=== PATIENT | female | born 1930 | race Caucasian/White ===

== ENCOUNTER 2019-02-16 19:58 | Inpatient (IN) | payer BC, OTHER ==
--- OUTSIDE RECORDS SUMMARY | 2019-02-16 20:00 | XMS REPORT ---
:1930 Author Organization eClinicalWorks Care Team Providers Name Role Phone Paulo Joshi Provider Role Unavailable Allergies, Adverse Reactions, Alerts Substance Reaction Event Type N.K.D.A. 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 20811916679 10 MG Oral Active TAKE 1 Sodium TABLET BY MOUTH EVERY DAY Alprazolam [facility] [id number] 0.25 MG Oral Active (Schedule IV Drug) TAKE 1 TABLET BY MOUTH AT BEDTIME NEEDED FOR SLEEP Sotalol HCl [facility] [id number] 120 MG Oral Active TAKE 1 TABLET BY MOUTH TWICE A DAY Levothyroxine [facility] 99168692034 75 MCG Oral Active TAKE 1 Sodium TABLET BY ORAL ROUTE EVERY DAY Pradaxa [facility] 78600861936 150 MG Oral Active TAKE 1 CAPSULE BY ORAL ROUTE 2 TIMES EVERY DAY Results No Known Results Summary Purpose eClinicalWorks Submission
--- OUTSIDE RECORDS SUMMARY | 2019-02-16 20:00 | XMS REPORT ---
:1930 Author Organization e[employer]Works Care Team Providers Name Role Phone Paulo Joshi Provider Role Unavailable Allergies, Adverse Reactions, Alerts Substance Reaction Event Type N.K.D.A. 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 Assessment Pain, joint, shoulder, left M25.512 Active Medications Medication Code Code Instructions Start End Status Dosage System Date Date Sotalol HCl [facility] 75443267185 120 MG Oral Active TAKE 1 TABLET BY MOUTH TWICE A DAY Alprazolam [facility] 82259609757 0.25 MG Oral Active (Schedule IV Drug) TAKE 1 TABLET BY MOUTH AT BEDTIME NEEDED FOR SLEEP Pradaxa [facility] 32027839701 150 MG Oral Active TAKE 1 CAPSULE BY ORAL ROUTE 2 TIMES EVERY DAY Levothyroxine [facility] 65022694548 75 MCG Oral Active TAKE 1 Sodium TABLET BY ORAL ROUTE EVERY DAY Montelukast [facility] 18229781267 10 MG Oral Active TAKE 1 Sodium TABLET BY MOUTH EVERY DAY Results No Known Results Summary Purpose eClinicalWorks Submission
--- OUTSIDE RECORDS SUMMARY | 2019-02-16 20:00 | XMS REPORT ---
[...] Start End Status Dosage System Date Date Pradaxa [facility] [id number] 150 MG Oral Active TAKE 1 CAPSULE BY ORAL ROUTE 2 TIMES EVERY DAY Montelukast [facility] 37382038253 10 MG Oral Active TAKE 1 Sodium TABLET BY MOUTH EVERY DAY Sotalol HCl [facility] 12929147483 120 MG Oral Active TAKE 1 TABLET BY MOUTH TWICE A DAY Levothyroxine [facility] 60367822270 75 MCG Oral Active TAKE 1 Sodium TABLET BY ORAL ROUTE EVERY DAY Alprazolam [facility] 72717508582 0.25 MG Oral Active (Schedule IV Drug) TAKE 1 TABLET BY MOUTH AT BEDTIME NEEDED FOR SLEEP Results No Known Results Summary Purpose eClinicalWorks Submission
--- OUTSIDE RECORDS SUMMARY | 2019-02-16 20:00 | XMS REPORT ---
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 Assessment Pain, joint, shoulder, right M25.511 Active Assessment Pain, joint, shoulder, left M25.512 Active Medications Medication Code Code Instructions Start End Status Dosage System Date Date Montelukast [facility] [id number] 10 MG Oral Active TAKE 1 Sodium TABLET BY MOUTH EVERY DAY Pradaxa [facility] 51088842453 150 MG Oral Active TAKE 1 CAPSULE BY ORAL ROUTE 2 TIMES EVERY DAY Alprazolam [facility] 33625686268 0.25 MG Oral Active (Schedule IV Drug) TAKE 1 TABLET BY MOUTH AT BEDTIME NEEDED FOR SLEEP Sotalol HCl [facility] 99306711744 120 MG Oral Active TAKE 1 TABLET BY MOUTH TWICE A DAY Levothyroxine [facility] 66506360542 75 MCG Oral Active TAKE 1 Sodium TABLET BY ORAL ROUTE EVERY DAY Results No Known Results Summary Purpose eClinicalWorks Submission
--- OUTSIDE RECORDS SUMMARY | 2019-02-16 20:01 | XMS REPORT ---
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 Medications Medication Code Code Instructions Start End Status Dosage System Date Date Montelukast [facility] 76241813125 10 MG Oral Active TAKE 1 Sodium TABLET BY MOUTH EVERY DAY Alprazolam [facility] 14946110120 0.25 MG Oral Active (Schedule IV Drug) TAKE 1 TABLET BY MOUTH AT BEDTIME NEEDED FOR SLEEP Levothyroxine [facility] 32819187194 75 MCG Oral Active TAKE 1 Sodium TABLET BY ORAL ROUTE EVERY DAY Pradaxa [facility] 34405305227 150 MG Oral Active TAKE 1 CAPSULE BY ORAL ROUTE 2 TIMES EVERY DAY Sotalol HCl [facility] 79523812809 120 MG Oral Active TAKE 1 TABLET BY MOUTH TWICE A DAY Results No Known Results Summary Purpose eClinicalWorks Submission
[2019-02-16 21:24] LABS: Absolute Monocytes 3.3 K/uL (0.1-1.3); Absolute Neutrophil 25.2 K/uL (1.8-8.0); Basophils % 0.4 % (0-1.3); Eosinophils % 0.6 % (0-4.4); Lymphocytes % 9.5 % (15.3-44.8); MPV 7.4 fL (7.6-11.3); Monocytes % 10.5 % (3.3-12.3); RBC Red Blood Cell Count 3.86 M/uL (3.86-4.86)
[2019-02-16] MEDS ORDERED: NA CHLORIDE 0.9% 1,000 ML ONE (21:27)
[2019-02-16] MEDS ORDERED: AZITHROMYCIN 500 MG INJ IVPB ONE (21:27)
[2019-02-16] MEDS ORDERED: ONDANSETRON 4 MG/2 ML VIAL ONE ×2 (21:27→22:34)
[2019-02-16] MEDS ORDERED: FAMOTIDINE 20 MG/2 ML VIAL IV ONE (21:27)
[2019-02-16] MEDS ORDERED: CEFTRIAXONE/SWI 1gm 1 GM/10 ML SYR ONE ×2 (21:27→22:35)
--- NOTE | 2019-02-16 21:27 | ER ---
Nurse's Notes [facility] Name: Charisse Guthrie Age: 88 yrs Sex: Female : 1930 Arrival Date: 02/16/2019 Time: 19:59 Bed 25 Private MD: Tobi Augustin C Diagnosis: Dyspnea;Hypoxemia;Weakness;Elevated white blood cell count;Pneumonia due to other specified bacteria;Nausea and vomiting;Atrial fibrillation and flutter-HX OF Presentation: 02/16 20:14 Presenting complaint: Patient states: SOB, cough, nausea, headache and neck pain ak1 started this morning. Transition of care: patient was not received from another setting of care. Onset of symptoms was February 16, 2019. Risk Assessment: Do you want to hurt yourself or someone else? Patient reports no desire to harm self or others. Care prior to arrival: None. 20:14 Method Of Arrival: Ambulatory ak1 20:14 Acuity: JOYCE 3 ak1 02/17 01:03 Initial Sepsis Screen: Does the patient meet any 2 criteria? No. Patient's initial rv sepsis screen is negative. Does the patient have a suspected source of infection? No. Patient's initial sepsis screen is negative. Triage Assessment: 02/16 20:15 General: Appears uncomfortable. ak1 02/17 01:03 Respiratory: the patient has mild shortness of breath. Respiratory: Airway is patent. rv Respiratory: Breath sounds are clear bilaterally. Respiratory: Onset: The symptoms/episode began/occurred gradually. Respiratory: Reports shortness of breath at rest. Historical: - Allergies: 02/16 20:15 No Known Allergies; ak1 - Home Meds: 22:02 Pradaxa 150 mg Oral cap 1 cap 2 times per day [Active]; Zoloft Oral [Active]; Synthroid rr5 25 mcg Oral tab 1 tab once daily [Active]; Aspirin Oral [Active]; - PMHx: 22:03 Atrial Fib; Hypertension; SVT; rr5 - Immunization history:: Adult Immunizations unknown. - Social history:: Smoking status: Patient/guardian denies using tobacco. - Ebola Screening: : No symptoms or risks identified at this time. Screenin:50 Abuse screen: Denies threats or abuse. Denies injuries from another. Nutritional rr5 screening: No deficits noted. Tuberculosis screening: No symptoms or risk factors identified. Fall Risk IV access (20 points). Total Hopper Fall Scale indicates No Risk (0-24 pts). Assessment: 20:50 General: Appears in no apparent distress. uncomfortable, Behavior is calm, cooperative, rr5 appropriate for age. 20:50 Pain: Complains of pain in throat Pain does not radiate. Pain currently is 5 out of 10 rr5 on a pain scale. Quality of pain is described as aching, Pain began gradually, Is intermittent. Neuro: Level of Consciousness is awake, alert, obeys commands, Oriented to person, place, time, situation, Appropriate for age. Cardiovascular: Capillary refill < 3 seconds Patient's skin is warm and dry. Rhythm is atrial fibrillation. Respiratory: Reports shortness of breath at rest Airway is patent Respiratory effort is even, Respiratory pattern is tachypnea. GI: Reports nausea. : No signs and/or symptoms were reported regarding the genitourinary system. EENT: Reports pain when swallowing. Derm: Skin is intact, is fragile, is thin, Skin temperature is warm. Musculoskeletal: Reports pain in ankle right. 21:50 Reassessment: dr. marsh aware for the D dimer 539. rr5 23:00 Reassessment: Patient appears in no apparent distress at this time. No changes from rr5 previously documented assessment. Patient is alert, oriented x 3, equal unlabored respirations, skin warm/dry/pink. 23:52 Reassessment: Patient appears in no apparent distress at this time. Patient is alert, rr5 oriented x 3, equal unlabored respirations, skin warm/dry/pink. no complaints made. awaiting for room assignment Patient states symptoms have improved. 02/17 00:13 Reassessment: DAUGHTER LEFT A CONTACT NUMBER - [id number]. rv 01:03 Respiratory: Breath sounds are clear bilaterally. rv Vital Signs: 02/16 20:15 BP 182 / 93; Pulse 112; Resp 20; Temp 98.8; Pulse Ox 92% on R/A; Weight 61.23 kg (R); ak1 Height 5 ft. 4 in. (162.56 cm) (R); Pain 3/10; 20:30 BP 167 / 77 RA Sitting (auto/reg); Pulse 104; Resp 22 S; Pulse Ox 99% on R/A; Pain 3/10;jp3 21:00 BP 168 / 78; Pulse 97; Resp 20; Pulse Ox 99% 2 lpm ; rr5 22:00 BP 166 / 79; Pulse 103; Resp 22; Pulse Ox 95% on 3 lpm NC; rr5 23:00 BP 155 / 70; Pulse 104; Resp 20; Pulse Ox 99% ; rr5 23:00 Pulse Ox 99% on 3 lpm NC; rr5 02/17 00:00 BP 136 / 67 RA; Pulse 95; Resp 18 S; Pulse Ox 98% on 3 lpm NC; rv 02/16 20:15 Body Mass Index 23.17 (61.23 kg, 162.56 cm) ak1 ED Course: 02/16 19:59 Patient arrived in ED. am2 20:00 Tobi Augustin MD is Private Physician. am2 20:14 Triage completed. ak1 20:15 Arm band placed on Patient placed in an exam room, on a stretcher, Patient notified of ak1 wait time. 20:20 Oxygen administration via nasal cannula \T\ 2L/min Response to oxygen therapy: symptoms jp3 improved. 20:23 EKG done, by ED staff, reviewed by Francisco Marsh MD. jp3 20:29 Francisco Marsh MD is Attending Physician. kristin 20:30 Warm blanket given. Pillow given. jp3 20:30 Inserted saline lock: 20 gauge in left forearm, using aseptic technique. Blood rr5 collected. 20:38 Placed in gown. Bed in low position. Call light in reach. Side rails up X 1. Side rails jp3 up X2. sheriff on. Pulse ox on. NIBP on. 20:52 Kareem Adhikari RN is Primary Nurse. rr5 21:25 Tobi Augustin MD is Hospitalizing Provider. kristin 21:27 Notified ED physician of a critical lab result(s). WBCs 31.9. Dr Marsh notified. bb 21:31 XRAY Chest (1 view) In Process Unspecified. EDMS 22:24 CT completed. Patient tolerated procedure well. Patient moved to CT. Patient moved back nc from CT. 02/17 01:00 No provider procedures requiring assistance completed. Patient admitted, IV remains in rv place. Administered Medications: 02/16 20:55 Drug: NS 0.9% 500 ml Route: IV; Rate: bolus; Site: left forearm; rr5 21:35 Follow up: Response: No adverse reaction; IV Status: Completed infusion; IV Intake: rr5 500ml 21:00 Drug: Pepcid 20 mg Route: IVP; Site: left forearm; rr5 23:55 Follow up: Response: No adverse reaction rr5 21:01 Drug: Rocephin 1 grams - ((cefTRIAXone) 1 grams, NS 0.9% 50 ml) Route: IVPB; Infused rr5 Over: 30 mins; Site: left forearm; 21:30 Follow up: Response: No adverse reaction; IV Status: Completed infusion; IV Intake: [id number] 21:05 Drug: Zofran 2 mg Route: IVP; Site: left forearm; rr5 23:56 Follow up: Response: No adverse reaction rr5 21:40 Dru mg of (Zithromax 500 mg, NS 0.9% 250 ml) Route: IVPB; Infused Over: 1 hrs; rr5 Site: left forearm; 22:40 Follow up: Response: No adverse reaction; IV Status: Completed infusion; IV Intake: rr5 250ml 22:00 Drug: NS 0.9% 1000 ml Route: IV; Rate: 125 ml/hr; Site: left forearm; rr5 04 01:09 Follow up: Response: No adverse reaction; IV Status: Infusion continued upon admission; rr5 IV Intake: 375ml 02/16 22:00 Drug: Tamiflu 75 mg Route: PO; rr5 23:54 Follow up: Response: No adverse reaction rr5 22:40 Drug: SOLU-Medrol 125 mg Route: IVP; Site: left forearm; rr5 23:54 Follow up: Response: No adverse reaction rr5 22:50 Drug: Rocephin - (cefTRIAXone) 1 grams Route: IVPB; Infused Over: 30 mins; Site: left rr5 forearm; 23:20 Follow up: Response: No adverse reaction; IV Status: Completed infusion; IV Intake: [id number] 22:54 Drug: Zofran 2 mg Route: IVP; Site: left forearm; rr5 23:54 Follow up: Response: No adverse reaction rr5 22:55 Drug: Xopenex 1.25 mg Route: Inhalation; rr5 23:55 Follow up: Response: No adverse reaction rr5 22:55 Drug: AtroVENT Aerosol 0.5 mg Route: Inhalation; rr5 23:55 Follow up: Response: No adverse reaction rr5 Intake: 21:30 IV: 50ml; Total: 50ml. rr5 21:35 IV: 500ml; Total: 550ml. rr5 22:40 IV: 250ml; Total: 800ml. rr5 23:20 IV: 50ml; Total: 850ml. rr5 02/17 01:09 IV: 375ml; Total: 1225ml. rr5 Output: 02/16 22:40 Stool: 1 (Formed Stool) ; Total: 0ml. rr5 Outcome: 21:26 Decision to Hospitalize by Provider. kristin 02/17 01:04 Admitted to ER Hold. Please see [facility] for further documentation. rv Condition: stable Instructed on the need for admit, Demonstrated understanding of instructions. 07:57 Patient left the ED. iw Signatures: Dispatcher [employer] EDFrancisco Jaramillo MD MD cha Ballard, Brenda, RN RN Piedad Loo RN RN iw Renata Jiang RN RN ak1 Jamie Monroy Amanda am2 Vicente, Ronaldo, RN RN rv Jose Farrar jp3 Kareem Adhikari, RN RN rr5 Corrections: (The following items were deleted from the chart) 02/16 20:42 20:39 Oxygen administration via nasal cannula \T\ 2L/min Response to oxygen therapy: jp3 symptoms improved. jp3
--- NOTE | 2019-02-16 21:27 | EDPHYS ---
Physician Documentation [facility] Name: Charisse Guthrie Age: 88 yrs Sex: Female : 1930 Arrival Date: 02/16/2019 Time: 19:59 Bed 25 Private MD: Tobi Augustin C ED Physician Francisco Marsh HPI: 02/16 20:47 This 88 yrs old Female presents to ER via Ambulatory with complaints of kristin Shortness Of Breath, Nausea, Sore Throat. 20:47 The patient has shortness of breath at rest, with light activity. Onset: The kristin symptoms/episode began/occurred 2 day(s) ago. Duration: The symptoms are continuous, and are unchanged since they started. The patient's shortness of breath has no apparent modifying factors. Associated signs and symptoms: The patient has no apparent associated signs or symptoms. Severity of symptoms: At their worst the symptoms were mild in the emergency department the symptoms are unchanged. The patient has not experienced similar symptoms in the past, It is unknown whether or not the patient has had similar symptoms in the past. Historical: - Allergies: 20:15 No Known Allergies; ak1 - Home Meds: 22:02 Pradaxa 150 mg Oral cap 1 cap 2 times per day [Active]; Zoloft Oral [Active]; Synthroid rr5 25 mcg Oral tab 1 tab once daily [Active]; Aspirin Oral [Active]; - PMHx: 22:03 Atrial Fib; Hypertension; SVT; rr5 - Immunization history:: Adult Immunizations unknown. - Social history:: Smoking status: Patient/guardian denies using tobacco. - Ebola Screening: : No symptoms or risks identified at this time. ROS: 20:47 Constitutional: Negative for fever, chills, and weight loss, Eyes: Negative for injury, kristin pain, redness, and discharge, Neck: Negative for injury, pain, and swelling, Cardiovascular: Negative for chest pain, palpitations, and edema, Respiratory: Negative for shortness of breath, cough, wheezing, and pleuritic chest pain, Abdomen/GI: Negative for abdominal pain, nausea, vomiting, diarrhea, and constipation, Back: Negative for injury and pain, : Negative for injury, bleeding, discharge, and swelling, MS/Extremity: Negative for injury and deformity, Skin: Negative for injury, rash, and discoloration, Neuro: Negative for headache, weakness, numbness, tingling, and seizure, Psych: Negative for depression, anxiety, suicide ideation, homicidal ideation, and hallucinations, Allergy/Immunology: Negative for hives, rash, and allergies, Endocrine: Negative for neck swelling, polydipsia, polyuria, polyphagia, and marked weight changes, Hematologic/Lymphatic: Negative for swollen nodes, abnormal bleeding, and unusual bruising. 20:47 ENT: Positive for difficulty swallowing, hoarseness, sinus congestion, sore throat. 20:47 Cardiovascular: Negative for chest pain. 20:47 MS/extremity: Negative for acute changes. Exam: 20:48 Constitutional: This is a well developed, well nourished patient who is awake, alert, kristin and in no acute distress. Head/Face: Normocephalic, atraumatic. Eyes: Pupils equal round and reactive to light, extra-ocular motions intact. Lids and lashes normal. Conjunctiva and sclera are non-icteric and not injected. Cornea within normal limits. Periorbital areas with no swelling, redness, or edema. ENT: Nares patent. No nasal discharge, no septal abnormalities noted. Tympanic membranes are normal and external auditory canals are clear. Oropharynx with no redness, swelling, or masses, exudates, or evidence of obstruction, uvula midline. Mucous membranes moist. Neck: Trachea midline, no thyromegaly or masses palpated, and no cervical lymphadenopathy. Supple, full range of motion without nuchal rigidity, or vertebral point tenderness. No Meningismus. Chest/axilla: Normal chest wall appearance and motion. Nontender with no deformity. No lesions are appreciated. Cardiovascular: Regular rate and rhythm with a normal S1 and S2. No gallops, murmurs, or rubs. Normal PMI, no JVD. No pulse deficits. Respiratory: Lungs have equal breath sounds bilaterally, clear to auscultation and percussion. No rales, rhonchi or wheezes noted. No increased work of breathing, no retractions or nasal flaring. Abdomen/GI: Soft, non-tender, with normal bowel sounds. No distension or tympany. No guarding or rebound. No evidence of tenderness throughout. Back: No spinal tenderness. No costovertebral tenderness. Full range of motion. Skin: Warm, dry with normal turgor. Normal color with no rashes, no lesions, and no evidence of cellulitis. MS/ Extremity: Pulses equal, no cyanosis. Neurovascular intact. Full, normal range of motion. Neuro: Awake and alert, GCS 15, oriented to person, place, time, and situation. Cranial nerves II-XII grossly intact. Motor strength 5/5 in all extremities. Sensory grossly intact. Cerebellar exam normal. Normal gait. Psych: Awake, alert, with orientation to person, place and time. Behavior, mood, and affect are within normal limits. 20:48 Neck: ROM/movement: is normal, no acute changes, Meningeal signs: are not present, Kernig's sign is negative, Brudzinski's sign is negative. 20:48 Musculoskeletal/extremity: DVT Exam: No signs of deep vein thrombosis. no pain, no swelling, no tenderness, negative Homans' sign noted on exam, no appreciated bluish discoloration, no erythema, no increased warmth. Vital Signs: 20:15 BP 182 / 93; Pulse 112; Resp 20; Temp 98.8; Pulse Ox 92% on R/A; Weight 61.23 kg (R); ak1 Height 5 ft. 4 in. (162.56 cm) (R); Pain 3/10; 20:30 BP 167 / 77 RA Sitting (auto/reg); Pulse 104; Resp 22 S; Pulse Ox 99% on R/A; Pain 3/10;jp3 21:00 BP 168 / 78; Pulse 97; Resp 20; Pulse Ox 99% 2 lpm ; rr5 22:00 BP 166 / 79; Pulse 103; Resp 22; Pulse Ox 95% on 3 lpm NC; rr5 23:00 BP 155 / 70; Pulse 104; Resp 20; Pulse Ox 99% ; rr5 23:00 Pulse Ox 99% on 3 lpm NC; rr5 02/17 00:00 BP 136 / 67 RA; Pulse 95; Resp 18 S; Pulse Ox 98% on 3 lpm NC; rv 02/16 20:15 Body Mass Index 23.17 (61.23 kg, 162.56 cm) ak1 MDM: 02/16 20:29 Patient medically screened. [facility] 20:49 Data reviewed: vital signs, nurses notes, lab test result(s), EKG, radiologic studies, kristin plain films. 02/16 20:46 Order name: Basic Metabolic Panel; Complete Time: 21:52 [facility] 02/16 20:46 Order name: CBC with Diff [facility] 02/16 20:46 Order name: LFT's; Complete Time: 21:52 [facility] 02/16 20:46 Order name: Magnesium; Complete Time: 21:52 [facility] 02/16 20:46 Order name: NT PRO-BNP; Complete Time: 21:52 [facility] 02/16 20:46 Order name: PT-INR [facility] 02/16 20:46 Order name: Troponin (emerg Dept Use Only); Complete Time: 21:52 [facility] 02/16 20:46 Order name: Blood Culture Adult (2) [facility] 02/16 20:46 Order name: Strep; Complete Time: 21:52 [facility] 02/16 20:46 Order name: Lipase; Complete Time: 21:52 [facility] 02/16 20:46 Order name: Urine Culture [facility] 02/16 20:46 Order name: D-Dimer [facility] 02/16 20:46 Order name: Influenza Screen (a \T\ B); Complete Time: 21:52 [facility] 02/16 21:28 Order name: Manual Differential [facility] 02/16 20:46 Order name: XRAY Chest (1 view) [facility] 02/16 21:31 Order name: Procalcitonin [facility] 02/16 21:31 Order name: Lactate [facility] 02/16 21:45 Order name: Throat Culture [facility] 02/16 21:49 Order name: Basic Metabolic Panel [facility] 02/16 21:50 Order name: Basic Metabolic Panel [facility] 02/16 21:50 Order name: CBC with Automated Diff [facility] 02/16 21:50 Order name: CBC with Automated Diff [facility] 02/16 21:50 Order name: NT PRO-BNP [facility] 02/16 21:50 Order name: NT PRO-BNP [facility] 02/16 21:50 Order name: Troponin I [facility] 02/16 21:50 Order name: Troponin I [facility] 02/16 21:50 Order name: Troponin I [facility] 02/16 21:50 Order name: Chest Single View [facility] 02/16 21:50 Order name: Chest Single View [facility] 02/16 21:59 Order name: Urine Dipstick--Ancillary (enter results) ar5 02/16 20:46 Order name: EKG; Complete Time: 20:47 [facility] 02/16 20:46 Order name: Cardiac monitoring; Complete Time: 21:11 [facility] 02/16 20:46 Order name: EKG - Nurse/Tech; Complete Time: 21:11 [facility] 02/16 20:46 Order name: IV Saline Lock; Complete Time: 21:12 [facility] 02/16 20:46 Order name: Labs collected and sent; Complete Time: 21:12 [facility] 02/16 20:46 Order name: O2 Per Protocol; Complete Time: 21:12 [facility] 02/16 20:46 Order name: O2 Sat Monitoring; Complete Time: 21:12 [facility] 02/16 20:46 Order name: Urine Dipstick-Ancillary (obtain specimen); Complete Time: 22:57 [facility] 02/16 21:50 Order name: Regular [facility] 02/16 21:50 Order name: EKG Electrocardiogram [facility] 02/16 21:50 Order name: EKG Electrocardiogram [facility] 02/16 21:56 Order name: CT Chest For PE Angio kristin Administered Medications: 20:55 Drug: NS 0.9% 500 ml Route: IV; Rate: bolus; Site: left forearm; rr5 21:35 Follow up: Response: No adverse reaction; IV Status: Completed infusion; IV Intake: rr5 500ml 21:00 Drug: Pepcid 20 mg Route: IVP; Site: left forearm; rr5 23:55 Follow up: Response: No adverse reaction rr5 21:01 Drug: Rocephin 1 grams - ((cefTRIAXone) 1 grams, NS 0.9% 50 ml) Route: IVPB; Infused rr5 Over: 30 mins; Site: left forearm; 21:30 Follow up: Response: No adverse reaction; IV Status: Completed infusion; IV Intake: 30gybm2 21:05 Drug: Zofran 2 mg Route: IVP; Site: left forearm; rr5 23:56 Follow up: Response: No adverse reaction rr5 21:40 Dru mg of (Zithromax 500 mg, NS 0.9% 250 ml) Route: IVPB; Infused Over: 1 hrs; rr5 Site: left forearm; 22:40 Follow up: Response: No adverse reaction; IV Status: Completed infusion; IV Intake: rr5 250ml 22:00 Drug: NS 0.9% 1000 ml Route: IV; Rate: 125 ml/hr; Site: left forearm; rr5 02/17 01:09 Follow up: Response: No adverse reaction; IV Status: Infusion continued upon admission; rr5 IV Intake: 375ml 02/16 22:00 Drug: Tamiflu 75 mg Route: PO; rr5 23:54 Follow up: Response: No adverse reaction rr5 22:40 Drug: SOLU-Medrol 125 mg Route: IVP; Site: left forearm; rr5 23:54 Follow up: Response: No adverse reaction rr5 22:50 Drug: Rocephin - (cefTRIAXone) 1 grams Route: IVPB; Infused Over: 30 mins; Site: left rr5 forearm; 23:20 Follow up: Response: No adverse reaction; IV Status: Completed infusion; IV Intake: [id number] 22:54 Drug: Zofran 2 mg Route: IVP; Site: left forearm; rr5 23:54 Follow up: Response: No adverse reaction rr5 22:55 Drug: Xopenex 1.25 mg Route: Inhalation; rr5 23:55 Follow up: Response: No adverse reaction rr5 22:55 Drug: AtroVENT Aerosol 0.5 mg Route: Inhalation; rr5 23:55 Follow up: Response: No adverse reaction rr5 Disposition: 02/16/19 21:26 Hospitalization ordered by Tobi Augustin for Inpatient Admission. Preliminary diagnosis are Dyspnea, Hypoxemia, Weakness, Elevated white blood cell count, Pneumonia due to other specified bacteria, Nausea and vomiting, Atrial fibrillation and flutter - HX OF. - Bed requested for Telemetry/MedSurg (Inpatient). - Status is Inpatient Admission. iw - Condition is Fair. - Problem is new. - Symptoms have improved. UTI on Admission? No Signatures: Dispatcher [employer] [facility] Angeles Araya FNP-C FNP-Nicole Zepeda RN RN kl Anderson, Corey, MD MD cha Ballard, Brenda, RN RN bb Williams, Irene, RN RN iw Krenek, Amber, RN RN ak1 Kareem Adhikari RN RN rr5 Corrections: (The following items were deleted from the chart) 21:31 21:26 Hospitalization Ordered by Tobi Augustin MD for Inpatient Admission. Preliminary kristin diagnosis is Dyspnea; Hypoxemia; Weakness. Bed requested for Telemetry/MedSurg (Inpatient). Status is Inpatient Admission. Condition is Fair. Problem is new. Symptoms have improved. UTI on Admission? No. kristin 21:43 21:31 02/16/2019 21:26 Hospitalization Ordered by A Demetria MONTEZ for Inpatient Admission. kristin Preliminary diagnosis is Dyspnea; Hypoxemia; Weakness; Elevated white blood cell count. Bed requested for Telemetry/MedSurg (Inpatient). Status is Inpatient Admission. Condition is Fair. Problem is new. Symptoms have improved. UTI on Admission? No. kristin 23:58 21:43 02/16/2019 21:26 Hospitalization Ordered by A Demetria MONTEZ for Inpatient Admission. bb Preliminary diagnosis is Dyspnea; Hypoxemia; Weakness; Elevated white blood cell count; Pneumonia due to other specified bacteria; Nausea and vomiting; Atrial fibrillation and flutter - HX OF. Bed requested for Telemetry/MedSurg (Inpatient). Status is Inpatient Admission. Condition is Fair. Problem is new. Symptoms have improved. UTI on Admission? No. kristin 02/17 06:30 02/16 23:58 02/16/2019 21:26 Hospitalization Ordered by A Demetria MONTEZ for Inpatient kl Admission. Preliminary diagnosis is Dyspnea; Hypoxemia; Weakness; Elevated white blood cell count; Pneumonia due to other specified bacteria; Nausea and vomiting; Atrial fibrillation and flutter - HX OF. Bed requested for [facility] ER HOLD. Status is Inpatient Admission. Condition is Fair. Problem is new. Symptoms have improved. UTI on Admission? No. bb 02/17 06:31 06:30 02/16/2019 21:26 Hospitalization Ordered by A Demetria MONTEZ for Inpatient Admission. kl Preliminary diagnosis is Dyspnea; Hypoxemia; Weakness; Elevated white blood cell count; Pneumonia due to other specified bacteria; Nausea and vomiting; Atrial fibrillation and flutter - HX OF. Bed requested for Telemetry/MedSurg (Inpatient). Status is Inpatient Admission. Condition is Fair. Problem is new. Symptoms have improved. UTI on Admission? No. kl 07:57 06:31 02/16/2019 21:26 Hospitalization Ordered by A Demetria MONTEZ for Inpatient Admission. iw Preliminary diagnosis is Dyspnea; Hypoxemia; Weakness; Elevated white blood cell count; Pneumonia due to other specified bacteria; Nausea and vomiting; Atrial fibrillation and flutter - HX OF. Bed requested for Telemetry/MedSurg (Inpatient). Status is Inpatient Admission. Condition is Fair. Problem is new. Symptoms have improved. UTI on Admission? No. kl
[2019-02-16] MEDS ORDERED: NA CHLORIDE 0.9% 250 ML ONE (21:28)
[2019-02-16 21:34] LABS: Protime INR 0.96
[2019-02-16 21:46] LABS: ALT/SGPT 42 U/L (12-78); AST/SGOT 23 U/L (15-37); Albumin 3.7 g/dL (3.4-5.0); Alkaline Phosphatase 83 U/L (45-117); BUN Blood Urea Nitrogen 25 mg/dL (7-18); Bicarbonate 28 mmol/L (21-32); Bilirubin Direct 0.2 mg/dL (0-0.2); Bilirubin Total 0.6 mg/dL (0.2-1.0); Glucose Level 107 mg/dL (74-106); Lipase 195 U/L (73-393); NT PRO-BNP 1238 pg/mL (<450); Potassium 3.9 mmol/L (3.5-5.1); Protein, Total 7.5 g/dL (6.4-8.2); Sodium Level 135 mmol/L (136-145); Troponin (Emerg Dept Use Only) < 0.02 ng/mL (0.0-0.045)
[2019-02-16] MEDS ORDERED: ALBUTEROL 2.5 MG/3 ML NEB SOL NEB PRN (21:46)
[2019-02-16] MEDS ORDERED: ONDANSETRON 4 MG/2 ML VIAL IV PRN (21:46)
[2019-02-16] MEDS ORDERED: IPRATROPIUM BROM 0.5MG/2.5ML NEB PRN (21:46)
[2019-02-16] MEDS ORDERED: NA CHLORIDE 0.9% 1,000 ML IV SCH (22:00)
[2019-02-16 22:03] LABS: Urine Blood TRACE (NEG); Urine Glucose NEGATIVE (NEG); Urine Protein TRACE (NEG)
[2019-02-16] MEDS ORDERED: METHYLPREDNISOLONE 125 MG INJ ONE (22:34)
[2019-02-16] MEDS ORDERED: LEVALBUTEROL 1.25 MG/3 ML NEB ONE (22:34)
[2019-02-16] MEDS ORDERED: OSELTAMIVIR 75 MG CAP ONE (22:34)
[2019-02-16] MEDS ORDERED: IPRATROPIUM BROM 0.5MG/2.5ML ONE (22:34)
[2019-02-16 22:50] LABS: Blood Morphology Comment NOT SEEN (NOT SEEN); Platelet Estimate ADEQ
[2019-02-17] MEDS ORDERED: NA CHLORIDE 0.9% 1,000 ML ONE (02:01)
[2019-02-17 05:54] LABS: Absolute Lymphocytes (CBC) 1.2 K/uL (0.7-4.9); Absolute Monocytes 0.6 K/uL (0.1-1.3); Absolute Neutrophil 25.1 K/uL (1.8-8.0); Basophils % 0.3 % (0-1.3); Hematocrit 35.6 % (36.0-45.0); Lymphocytes % 4.3 % (15.3-44.8); Monocytes % 2.1 % (3.3-12.3); RBC Red Blood Cell Count 3.61 M/uL (3.86-4.86)
[2019-02-17 06:20] LABS: Potassium 4.3 mmol/L (3.5-5.1)
[2019-02-17] MEDS: IPRATROPIUM BROM 0.5MG/2.5ML NEB SCH ×3 (07:45→20:00)
[2019-02-17] MEDS: ALBUTEROL 2.5 MG/3 ML NEB SOL NEB SCH ×3 (07:45→20:00)
[2019-02-17] MEDS ORDERED: ALBUTEROL 2.5 MG/3 ML NEB SOL ONE (07:55)
[2019-02-17] MEDS ORDERED: IPRATROPIUM BROM 0.5MG/2.5ML ONE (07:55)
--- NOTE | 2019-02-17 08:01 | RAD REPORT ---
EXAM DESCRIPTION: RAD - Chest Single View - 02/16/2019 9:38 pm CLINICAL HISTORY: Cough;Congestion Chest pain. COMPARISON: Chest Single View dated 04/13/2017; Chest Pa And Lat (2 Views) dated 06/12/2016; CHEST SINGL E VIEW dated 07/19/2010; CHEST SINGLE VIEW dated 07/18/2010; Chest For Pe Angio dated 02/16/2019 FINDINGS: Portable technique limits examination quality. Mild linear opacities are present in both lung bases likely areas atelectasis. The heart is normal in size. Tortuous thoracic aorta.No fracture is evident.
--- NOTE | 2019-02-17 08:11 | RAD REPORT ---
EXAM DESCRIPTION: RAD - Chest Single View - 02/17/2019 6:59 am CLINICAL HISTORY: Chest Pain Chest pain. COMPARISON: Chest Single View dated 02/16/2019; Chest Single View dated 04/13/2017; Chest Pa And Lat (2 Views) dated 06/12/2016; CHEST SINGLE VIEW dated 07/19/2010; Chest For Pe Angio dated 02/16/2019 FINDINGS: Portable technique limits examination quality. Trace pleural fluid is present bilaterally with minimal atelectasis in both lung bases. The heart is upper limit normal in size. No displaced fractures. IMPRESSION: Little overall change in the appearance of the chest since recent comparative study.
[2019-02-17] MEDS ORDERED: CEFTRIAXONE 1 GM/NS 50 ML 1 GM/50 ML BAG IV SCH (09:00)
[2019-02-17] MEDS ORDERED: AZITHROMYCIN IV 500 MG in NA CHLORIDE 0.9% 250 ML IVPB SCH (09:00)
[2019-02-17] MEDS: MONTELUKAST 10 MG TAB PO SCH (10:03)
[2019-02-17] MEDS: NA CHLORIDE 0.9% 1,000 ML IV SCH (10:03)
[2019-02-17] MEDS: LEVOTHYROXINE SOD 0.05 MG TABLET PO SCH (10:03)
[2019-02-17] MEDS: DABIGATRAN 150 MG CAP PO SCH ×2 (10:03→21:04)
[2019-02-17] MEDS: FLUOXETINE 20 MG CAP PO SCH (10:04)
[2019-02-17] MEDS: SOTALOL HCL 80 MG TAB PO SCH ×2 (10:04→21:03)
[2019-02-17] MEDS: FAMOTIDINE 20 MG/2 ML VIAL IV SCH ×2 (10:05→21:05)
[2019-02-17] MEDS: CEFTRIAXONE/SWI 1gm 1 GM/10 ML SYR IV SCH ×2 (10:05→21:02)
[2019-02-17] MEDS: RIVASTIGMINE 4.6 MG/24 HR PATCH TD SCH (10:06)
[2019-02-17 10:45] VITALS: BMI 21.6
--- NOTE | 2019-02-17 11:24 | RAD REPORT ---
EXAM DESCRIPTION: Chest For Pe Angio CLINICAL HISTORY: 88 years Female, Congestion;Cough COMPARISON: None. TECHNIQUE: 3 mm axial images of the thorax were obtained with IV contrast. Coronal and sagittal refo rmatted images were obtained. Right lobe likely a left oblique reformatted images were obtained. INTRAVENOUS CONTRAST: Not documented. Please refer to medical record. FINDINGS: LUNG RDZ: There is small multifocal pulmonary infiltrates in the upper lobes bilaterally. MEDIASTINAL STRUCTURES: There is no evidence of aortic aneurysm or aortic dissection. There is moderately severe atherosclerotic disease about the thoracic aorta. There is no adenopathy. There is no pericardial effusion. PULMONARY ARTERIES: No evidence pulmonary embolus. PLEURAL SPACE: Normal. AXILLAE: No adenopathy. UPPER ABDOMEN: No acute findings. BONY STRUCTURES: No suspicious lesions. There is no adenopathy. IMPRESSION: 1. Small multifocal pulmonary infiltrates in the upper lobes bilaterally. 2. No evidence of pulmonary emboli. Electronically signed by: Juni Coats MD 02/16/2019 10:43 PM CDT Due to temporary technical issues with the PACS/Fluency reporting system, reports are being signed by the in house radiologist as a courtesy to ensure prompt reporting. The interpreting radiologist is f ully responsible for the content of the report.
--- NOTE | 2019-02-17 11:43 | EKG ---
Test Date: 2019-02-17 Test Time: 09:03:17 Investment Trader: MARGUERITE MEASUREMENT RESULTS: Intervals: Rate: 85 DE: 148 QRSD: 82 QT: 388 QTc: 461 [place]: P: 53 DE: 148 QRS: 52 T: 60 INTERPRETIVE STATEMENTS: Normal sinus rhythm Normal ECG Compared to ECG 02/17/2019 05:00:31 No significant changes Electronically Signed On 02-17-19 09:57:28 CDT by Jose Mason
--- NOTE | 2019-02-17 11:44 | EKG ---
Test Date: 2019-02-17 Test Time: 05:00:31 Film Masker: [email or web address] MEASUREMENT RESULTS: Intervals: Rate: 81 WV: 164 QRSD: 84 QT: 398 QTc: 462 [place]: P: 55 WV: 164 QRS: 83 T: 78 INTERPRETIVE STATEMENTS: Normal sinus rhythm Normal ECG Compared to ECG 02/16/2019 20:27:05 No significant changes Electronically Signed On 02-17-19 10:01:25 CDT by Jose Mason
--- NOTE | 2019-02-17 11:45 | EKG ---
Test Date: 2019-02-16 Test Time: 20:27:05 Ada Accommodation Consultant: VENTURA MEASUREMENT RESULTS: Intervals: Rate: 97 FL: 164 QRSD: 80 QT: 340 QTc: 431 [place]: P: 75 FL: 164 QRS: 49 T: 64 INTERPRETIVE STATEMENTS: Normal sinus rhythm Normal ECG Compared to ECG 04/13/2017 18:48:47 No significant changes Electronically Signed On 02-17-19 10:03:08 CDT by Jose Mason
[2019-02-17] MEDS: MAGNESIUM CHLORIDE 64 MG TAB PO SCH (11:55)
[2019-02-17] MEDS: AZITHROMYCIN IV 500 MG in NA CHLORIDE 0.9% 250 ML IVPB SCH (21:05)
[2019-02-17] MEDS: ALPRAZOLAM 0.25 MG TABLET PO PRN (21:27)
[2019-02-18] MEDS: ALBUTEROL 2.5 MG/3 ML NEB SOL NEB SCH ×4 (02:00→20:00)
[2019-02-18] MEDS: IPRATROPIUM BROM 0.5MG/2.5ML NEB SCH ×4 (02:00→20:00)
--- NOTE | 2019-02-18 02:58 | HP ---
Date of Admission: 02/17/2019 Chief Complaint: Cough, shortness of breath, and feeling bad. History Of Present Illness: This is an 88-year-old female patient, who came into emergency room yesterday with complaints of cough, chest congestion, shortness of breath, and feeling weak and really bad. After she was evaluated in the emergency room, she was admitted to the hospital with pneumonia. This morning when I saw her, she was in the emergency room. Allergies: NO KNOWN ALLERGIES. Medications: List reviewed. Review of Systems: Respiratory: As mentioned above. Constitutional: As mentioned above. All other systems reviewed and negative. Past Medical History: Significant for osteoarthritis at multiple sites, hypertension, hyperlipidemia, atrial fibrillation, hypothyroidism, allergic rhinitis, hypomagnesemia, depression, COPD. Past Surgical History: Cervical fusion, cholecystectomy, tonsillectomy, hysterectomy, fracture of right lower leg and surgery for that. Family History: Father had ALS. Mother had breast cancer. Social History: Prior history of smoking, not at present time. Use of alcohol negative. Physical Examination: Vital Signs: When she first came into emergency room, temperature 98.8, pulse 99, respiratory rate 18, blood pressure 129/71, oxygen saturation 94%. Height 5 feet and 4 inches, weight 134 pounds. General: Awake, alert, oriented, not in distress. HEENT: Head atraumatic, normocephalic. Conjunctivae nonerythematous. Sclerae white. Mouth, no thrush or edema noted. Ears/Nose, no mass, lesion, discharge noted. Neck: Supple. No JVD, lymph nodes, bruit, thyromegaly noted. Lungs: Some rales in right lower lung region and diminished air entry in left upper lung region. The patient is not using any accessory muscles of respiration. Heart: Normal heart sounds, no murmur or gallop. Abdomen: Soft, bowel sounds normal. No guarding, rigidity, tenderness, mass, hepatosplenomegaly, distention, or bruit noted. Extremities: No leg edema. No calf tenderness. Skin: No rash, ulcer, cellulitis. Lymphatics: No lymph node enlargement in neck, supraclavicular, infraclavicular region. Neuro: No focal neurological deficit. Chest: Unremarkable. External Genitalia: Deferred. Rectal: Deferred. Laboratory Data: Yesterday, white count 31.9, hemoglobin 12.7, platelets 422. This morning, white count 26.8, hemoglobin 11.9, platelets 369. D-dimer 539. INR normal. Yesterday, sodium 135, potassium 3.9, chloride 99, bicarb 28, BUN 25, creatinine 0.84, glucose 107. Lactic acid 1.2. Procalcitonin less than 0.05. Liver function tests unremarkable. Troponin less than 0.02. This morning, sodium 137, potassium 4.3, chloride 103, bicarb 27, BUN 17, creatinine 0.69, glucose 159. Urinalysis negative. Influenza A and B negative. Streptococcal screen negative. CAT scan of the chest per PE protocol shows no evidence of pulmonary emboli and bilateral multifocal pneumonia. Impression: 1. Pneumonia. 2. Paroxysmal atrial fibrillation. 3. Chronic anticoagulation therapy. 4. Hypertension. 5. COPD. 6. Hyperlipidemia. 7. Hypothyroidism. 8. Allergic rhinitis. 9. Hypomagnesemia. 10. Depression. 11. Osteoarthritis, multiple sites. Plan: Admit the patient to hospital for further evaluation and management of this problem. The patient is appropriate for inpatient and is expected to spend 2 midnights in hospital. Home medications will be continued per order including her chronic anticoagulation therapy, Pradaxa. We will give oxygen nebulizer treatment, antibiotics per order, follow up on culture results. Consult Physical Therapy to help ambulate the patient. I will see her tomorrow for followup. Plan of treatment discussed with her. REDDY/DARVIN Voice ID: [id number] MTDD
[2019-02-18] MEDS: NA CHLORIDE 0.9% 1,000 ML IV SCH (03:30)
[2019-02-18] MEDS: GUAIFENESIN/DM 5 ML UCUP PO PRN ×2 (03:35→18:37)
[2019-02-18 06:15] LABS: Absolute Lymphocytes (CBC) 1.5 K/uL (0.7-4.9); Absolute Monocytes 1.8 K/uL (0.1-1.3); Basophils % 0.1 % (0-1.3); Eosinophils % 0.1 % (0-4.4); Hematocrit 29.4 % (36.0-45.0); Lymphocytes % 8.5 % (15.3-44.8); MPV 7.5 fL (7.6-11.3); Monocytes % 10.2 % (3.3-12.3); RBC Red Blood Cell Count 2.95 M/uL (3.86-4.86)
[2019-02-18 06:19] LABS: Magnesium 2.1 mg/dL (1.8-2.4); Potassium 3.7 mmol/L (3.5-5.1)
[2019-02-18] MEDS: LEVOTHYROXINE SOD 0.05 MG TABLET PO SCH (06:24)
[2019-02-18] MEDS: RIVASTIGMINE 4.6 MG/24 HR PATCH TD SCH (09:17)
[2019-02-18] MEDS: DULERA 100/5 (MOMETASONE/FORMOTEROL) INHALER IH SCH ×2 (09:18→20:18)
[2019-02-18] MEDS: FLUOXETINE 20 MG CAP PO SCH (09:19)
[2019-02-18] MEDS: CEFTRIAXONE/SWI 1gm 1 GM/10 ML SYR IV SCH ×2 (09:19→20:19)
[2019-02-18] MEDS: MONTELUKAST 10 MG TAB PO SCH (09:19)
[2019-02-18] MEDS: DABIGATRAN 150 MG CAP PO SCH ×2 (09:19→20:18)
[2019-02-18] MEDS: FAMOTIDINE 20 MG/2 ML VIAL IV SCH ×2 (09:19→20:19)
[2019-02-18] MEDS: SOTALOL HCL 80 MG TAB PO SCH ×2 (09:19→20:18)
[2019-02-18] MEDS: MAGNESIUM CHLORIDE 64 MG TAB PO SCH (09:20)
[2019-02-18] MEDS: ACETAMINOPHEN 500 MG TAB PO PRN (18:36)
[2019-02-18] MEDS: AZITHROMYCIN IV 500 MG in NA CHLORIDE 0.9% 250 ML IVPB SCH (20:19)
--- NOTE | 2019-02-19 00:40 | PN ---
Date of Progress Note: 02/18/2019 Subjective: The patient was seen this morning for followup. She was lying in bed, still has cough, chest congestion, some wheezing and shortness of breath, but overall feels better. She is ambulating well in her room. Denies any diarrhea or vomiting. Objective: Vital Signs: Reviewed. HEENT: Unremarkable. Lungs: Bilateral good equal entry. Presence of some scattered wheezing and scattered rales noted, b ut overall much better today than yesterday. Heart: Sounds normal. Abdomen: Soft. Bowel sounds normal. No guarding, rigidity, tenderness, distention. Extremities: No leg edema. Laboratory Data: White count 17.3, hemoglobin 10, platelets 353. Sodium 141, potassium 3.7, chlorid e 109, bicarb 26, BUN 23, creatinine 0.64, glucose 116, magnesium 2.1. TSH from yesterday 0.726. Impression: 1.Pneumonia. 2.COPD. 3.Atrial fibrillation. Plan: We will continue current medications. Continue current anticoagulant medication, Pradaxa. We will continue current antibiotics that she is on. She is improving well. We will add inhaler, Dule ra 2 puffs twice a day. Rinse mouth with water after use. I will see her tomorrow for followup. De pending on her condition, we will decide if she is ready for discharge either tomorrow or day after t omorrow depending on her condition. Details and plan of treatment discussed with her. She was advised to ambulate as she tolerates. REDDY/MODL Voice ID: [id number] Report ID: [id number]
[2019-02-19] MEDS: ALPRAZOLAM 0.25 MG TABLET PO PRN ×2 (00:49→23:42)
[2019-02-19] MEDS: ALBUTEROL 2.5 MG/3 ML NEB SOL NEB SCH ×4 (02:00→20:00)
[2019-02-19] MEDS: IPRATROPIUM BROM 0.5MG/2.5ML NEB SCH ×4 (02:00→20:00)
[2019-02-19 05:45] LABS: Absolute Lymphocytes (CBC) 1.8 K/uL (0.7-4.9); Absolute Monocytes 1.7 K/uL (0.1-1.3); Absolute Neutrophil 11.1 K/uL (1.8-8.0); Basophils % 0.6 % (0-1.3); Eosinophils % 0.5 % (0-4.4); Lymphocytes % 12.1 % (15.3-44.8); MPV 7.6 fL (7.6-11.3); Monocytes % 11.5 % (3.3-12.3)
[2019-02-19] MEDS: LEVOTHYROXINE SOD 0.05 MG TABLET PO SCH (05:54)
[2019-02-19 05:59] LABS: Magnesium 1.9 mg/dL (1.8-2.4); Potassium 3.7 mmol/L (3.5-5.1)
[2019-02-19] MEDS: MAGNESIUM CHLORIDE 64 MG TAB PO SCH (08:29)
[2019-02-19] MEDS: DULERA 100/5 (MOMETASONE/FORMOTEROL) INHALER IH SCH ×2 (08:29→21:52)
[2019-02-19] MEDS: FAMOTIDINE 20 MG/2 ML VIAL IV SCH ×2 (08:30→21:45)
[2019-02-19] MEDS: DABIGATRAN 150 MG CAP PO SCH ×2 (08:30→21:40)
[2019-02-19] MEDS: CEFTRIAXONE/SWI 1gm 1 GM/10 ML SYR IV SCH ×2 (08:30→21:46)
[2019-02-19] MEDS: RIVASTIGMINE 4.6 MG/24 HR PATCH TD SCH (08:31)
[2019-02-19] MEDS: FLUOXETINE 20 MG CAP PO SCH (08:32)
[2019-02-19] MEDS: MONTELUKAST 10 MG TAB PO SCH (08:32)
[2019-02-19] MEDS: SOTALOL HCL 80 MG TAB PO SCH ×2 (08:32→21:38)
[2019-02-19] MEDS: AMLODIPINE 5 MG TAB PO SCH ×2 (08:32→08:49)
[2019-02-19] MEDS: ACETAMINOPHEN 500 MG TAB PO PRN ×2 (08:33→17:50)
[2019-02-19] MEDS: GUAIFENESIN/DM 5 ML UCUP PO PRN (08:34)
--- NOTE | 2019-02-19 14:51 | PN ---
Date of Progress Note: 02/19/2019 Subjective: The patient was seen this morning for followup. No new complaints or problems reported by the patient except she has some generalized weakness and she was not happy that she is not getting better quickly. Her breathing is better. Objective: Vital Signs: Reviewed. HEENT: Unremarkable. Lungs: Clear to auscultation. No rhonchi. No rales. Not using any accessory muscles of respiratio n. She still has some cough. Heart: Sounds normal. Abdomen: Soft. Bowel sounds normal. No guarding, rigidity, tenderness, distention. Extremities: No leg edema. Laboratory Data: White count today 14.7, hemoglobin 10.9, platelets 385. Sodium 137, potassium 3.7, chloride 104, bicarb 26, BUN 13, creatinine 0.64, glucose 80, magnesium 1.9. Impression: 1.Pneumonia. 2.Chronic obstructive pulmonary disease. 3.Atrial fibrillation. 4.Hypertension. Plan: The patient's blood pressure was elevated this morning around 170/100. She was complaining of some headache and since yesterday, the patient says she has been having little bit headache. No dennis sea, no vomiting. We will start her on amlodipine 5 mg daily. Continue current antibiotics. Her pn eumonia seems to be improving well. We will repeat blood work and chest x-ray tomorrow. Physical th erapy to help ambulate the patient, continue to work with her. I explained to the patient that she i s improving well, but as far as her generalized weakness is concerned, it will take some time for her to get back to her previous level of functioning. There is a possibility that she might be able to go home sometime this weekend and upon discharge she will benefit from home health and home physical therapy type of services. Details were discussed with her and Dr. Reyes, hospitalist, who will be covering this darren ent in my absence starting today. REDDY/MODL Voice ID: [id number] Report ID: [id number]
[2019-02-19] MEDS: AZITHROMYCIN IV 500 MG in NA CHLORIDE 0.9% 250 ML IVPB SCH (21:42)
[2019-02-20] MEDS: IPRATROPIUM BROM 0.5MG/2.5ML NEB SCH ×4 (02:00→19:52)
[2019-02-20] MEDS: ALBUTEROL 2.5 MG/3 ML NEB SOL NEB SCH ×4 (02:00→19:52)
[2019-02-20 05:48] LABS: Absolute Lymphocytes (CBC) 1.9 K/uL (0.7-4.9); Absolute Neutrophil 6.9 K/uL (1.8-8.0); Basophils % 0.4 % (0-1.3); Eosinophils % 0.7 % (0-4.4); Hematocrit 34.3 % (36.0-45.0); Lymphocytes % 17.4 % (15.3-44.8); MPV 7.6 fL (7.6-11.3); Monocytes % 18.4 % (3.3-12.3); RBC Red Blood Cell Count 3.47 M/uL (3.86-4.86)
[2019-02-20] MEDS: LEVOTHYROXINE SOD 0.05 MG TABLET PO SCH (06:02)
[2019-02-20 06:05] LABS: BUN Blood Urea Nitrogen 12 mg/dL (7-18); Bicarbonate 26 mmol/L (21-32); Glucose Level 84 mg/dL (74-106); Potassium 3.6 mmol/L (3.5-5.1); Sodium Level 140 mmol/L (136-145)
[2019-02-20 06:50] LABS: Urine White Blood Cell Casts OK
[2019-02-20 06:51] LABS: Blood Morphology Comment NOT SEEN (NOT SEEN); Platelet Estimate ADEQ
--- NOTE | 2019-02-20 08:57 | RAD REPORT ---
EXAM DESCRIPTION: RAD - Chest Pa And Lat (2 Views) - 02/20/2019 8:15 am CLINICAL HISTORY: Pneumonia COMPARISON: February 17February 16 TECHNIQUE: PA and lateral views of the chest were obtained. FINDINGS: The lungs are extensively fibrotic as a baseline. Bilateral costophrenic angle blunting is present. No new mass or consolidation. Lung parenchymal pattern is not substantially different. Mild or early interstitial edema or infiltrate can be masked by the chronic lung base and upper lung fiel d pattern. No cardiomegaly or vascular engorgement. Trachea is midline. No pneumothorax. Pleural ef fusion not suspected. No acute bony finding noted. No aortic abnormality. IMPRESSION: Stable chest examination. The patient has prominent fibrotic an obstructive lung change.
[2019-02-20] MEDS: RIVASTIGMINE 4.6 MG/24 HR PATCH TD SCH (09:00)
[2019-02-20] MEDS: DABIGATRAN 150 MG CAP PO SCH ×2 (09:46→22:40)
[2019-02-20] MEDS: SOTALOL HCL 80 MG TAB PO SCH ×2 (09:47→22:38)
[2019-02-20] MEDS: MAGNESIUM CHLORIDE 64 MG TAB PO SCH (09:47)
[2019-02-20] MEDS: AMLODIPINE 5 MG TAB PO SCH (09:48)
[2019-02-20] MEDS: MONTELUKAST 10 MG TAB PO SCH (09:48)
[2019-02-20] MEDS: FLUOXETINE 20 MG CAP PO SCH (09:48)
[2019-02-20] MEDS: CEFTRIAXONE/SWI 1gm 1 GM/10 ML SYR IV SCH ×2 (10:00→22:40)
[2019-02-20] MEDS: FAMOTIDINE 20 MG/2 ML VIAL IV SCH ×2 (10:00→22:39)
[2019-02-20] MEDS: DULERA 100/5 (MOMETASONE/FORMOTEROL) INHALER IH SCH ×2 (13:00→22:39)
--- NOTE | 2019-02-20 16:22 | P.PN ---
Subjective Date of Service: 02/20/19 Subjective: No C/O voiced, Tolerating diet, Improving, Working w/ PT, Doing well , Other (Pt C/o of having her BP elevated this AM. Feels Weak but overall better than before. Denies SOB or CP) Review of Systems 10-point ROS is otherwise unremarkable Physical Examination - Vital Signs Temperature: 99.9 F Blood Pressure: 140/80 Pulse: 82 Respirations: 22 Pulse Ox (%): 93 - Physical Exam General: Alert, In no apparent distress HEENT: Atraumatic, PERRLA, EOMI Neck: Supple, JVD not distended Respiratory: Normal air movement, Expiratory wheezes, Inspiratory wheezes Cardiovascular: Regular rate/rhythm, Normal S1 S2 Gastrointestinal: Normal bowel sounds, No tenderness Musculoskeletal: No tenderness Integumentary: No rashes Neurological: Normal speech, Normal tone, Normal affect Lymphatics: No axilla or inguinal lymphadenopathy - Studies Medications List Reviewed: Yes Assessment And Plan - Current Problems (Diagnosis) (1) PNA (pneumonia) Current Visit: Yes Status: Acute Plan: Multilobar PNA most likely bacterial -WBC improving today and at 10.4 -Currently on IV abx. Will continue for next 24 to 48 hrs -F.U with Culture. Negative thus Far Qualifiers: Pneumonia type: due to unspecified organism Laterality: bilateral Lung location: unspecified part of lung Qualified Code(s): J18.9 - Pneumonia, unspecified organism (2) COPD (chronic obstructive pulmonary disease) Current Visit: Yes Status: Acute Plan: COPD with acute Exacerbation -Duonebs, Steroids and oxygen for now -Added Dulera and pt improved markedly Qualifiers: COPD type: COPD with acute exacerbation Qualified Code(s): J44.1 - Chronic obstructive pulmonary disease with (acute) exacerbation (3) Atrial fibrillation Current Visit: Yes Status: Chronic Qualifiers: Atrial fibrillation type: chronic Qualified Code(s): I48.2 - Chronic atrial fibrillation (4) HTN (hypertension) Current Visit: Yes Status: Chronic Plan: BP elevated today. C.o of Mild headache but overall improved -Increase amlodipine to 10mg daily today Qualifiers: Hypertension type: essential hypertension Qualified Code(s): I10 - Essential (primary) hypertension (5) Hypothyroid Current Visit: Yes Status: Chronic Qualifiers: Hypothyroidism type: acquired Qualified Code(s): E03.9 - Hypothyroidism, unspecified - Plan Pending Clinical Improvement. BP is still elevated. Increase Amlodipine. Will monitor for now. Physical therapy to help ambulate the patient. May need HH upon discharge. Discharge Plan: Home Plan to discharge in: Greater than 2 days - Code Status/Comfort Care Code Status Assessed: Yes Critical Care: No
[2019-02-20] MEDS: AZITHROMYCIN IV 500 MG in NA CHLORIDE 0.9% 250 ML IVPB SCH (22:42)
[2019-02-20] MEDS: ALPRAZOLAM 0.25 MG TABLET PO PRN (22:51)
[2019-02-21] MEDS: IPRATROPIUM BROM 0.5MG/2.5ML NEB SCH ×4 (01:28→20:05)
[2019-02-21] MEDS: ALBUTEROL 2.5 MG/3 ML NEB SOL NEB SCH ×4 (01:28→20:05)
[2019-02-21] MEDS: LEVOTHYROXINE SOD 0.05 MG TABLET PO SCH (06:42)
[2019-02-21] MEDS: CEFTRIAXONE/SWI 1gm 1 GM/10 ML SYR IV SCH ×2 (09:00→20:56)
[2019-02-21] MEDS: SOTALOL HCL 80 MG TAB PO SCH ×2 (10:10→20:57)
[2019-02-21] MEDS: FLUOXETINE 20 MG CAP PO SCH (10:12)
[2019-02-21] MEDS: AMLODIPINE 10 MG TAB PO SCH (10:12)
[2019-02-21] MEDS: MONTELUKAST 10 MG TAB PO SCH (10:13)
[2019-02-21] MEDS: DULERA 100/5 (MOMETASONE/FORMOTEROL) INHALER IH SCH ×2 (10:14→20:58)
[2019-02-21] MEDS: MAGNESIUM CHLORIDE 64 MG TAB PO SCH (10:14)
[2019-02-21] MEDS: DABIGATRAN 150 MG CAP PO SCH ×2 (10:22→20:56)
[2019-02-21] MEDS: RIVASTIGMINE 4.6 MG/24 HR PATCH TD SCH (10:24)
[2019-02-21] MEDS: FAMOTIDINE 20 MG/2 ML VIAL IV SCH ×2 (10:29→20:58)
--- NOTE | 2019-02-21 12:26 | P.PN ---
Subjective Date of Service: 02/21/19 Subjective: No C/O voiced, Tolerating diet, Ambulating, Working w/ PT, Doing well, Other (BP controlled today on Increase Dose of Amlodipine. Pt denies FAYE, Fever, Chills and CP. No SOB. C.o some generalzied weakness.) Review of Systems 10-point ROS is otherwise unremarkable Physical Examination - Vital Signs Temperature: 98.3 F Blood Pressure: 127/71 Pulse: 76 Respirations: 18 Pulse Ox (%): 94 - Physical Exam General: Alert, In no apparent distress HEENT: Atraumatic, PERRLA, EOMI Neck: Supple, JVD not distended Respiratory: Normal air movement, Rhonchi/gurgles Cardiovascular: Regular rate/rhythm, Normal S1 S2 Gastrointestinal: Normal bowel sounds, No tenderness Musculoskeletal: No tenderness Integumentary: No rashes Neurological: Normal speech, Normal tone, Normal affect Lymphatics: No axilla or inguinal lymphadenopathy - Studies Medications List Reviewed: Yes Assessment And Plan - Current Problems (Diagnosis) (1) PNA (pneumonia) Current Visit: Yes Status: Acute Plan: Multilobar PNA most likely bacterial -WBC WNL now -Currently on IV abx. Will continue for next 24 to 48 hrs -F.U with Culture. Negative thus Far Qualifiers: Pneumonia type: due to unspecified organism Laterality: bilateral Lung location: unspecified part of lung Qualified Code(s): J18.9 - Pneumonia, unspecified organism (2) COPD (chronic obstructive pulmonary disease) Current Visit: Yes Status: Acute Plan: COPD with acute Exacerbation -Duonebs and oxygen for now. No Steroids -Added Dulera and pt improved markedly now Qualifiers: COPD type: COPD with acute exacerbation Qualified Code(s): J44.1 - Chronic obstructive pulmonary disease with (acute) exacerbation (3) Atrial fibrillation Current Visit: Yes Status: Chronic Qualifiers: Atrial fibrillation type: chronic Qualified Code(s): I48.2 - Chronic atrial fibrillation (4) HTN (hypertension) Current Visit: Yes Status: Chronic Plan: BP WNL now. -Now on amlodipine 10mg daily Qualifiers: Hypertension type: essential hypertension Qualified Code(s): I10 - Essential (primary) hypertension (5) Hypothyroid Current Visit: Yes Status: Chronic Qualifiers: Hypothyroidism type: acquired Qualified Code(s): E03.9 - Hypothyroidism, unspecified - Plan Pending Clinical Improvement. BP finally is WNL now. Will observe for next 24hrs. Will monitor for now. Physical therapy to help ambulate the patient. May need HH upon discharge. Discharge Plan: Home Plan to discharge in: Greater than 2 days - Code Status/Comfort Care Code Status Assessed: Yes Critical Care: No
[2019-02-21] MEDS: AZITHROMYCIN IV 500 MG in NA CHLORIDE 0.9% 250 ML IVPB SCH (20:56)
[2019-02-21] MEDS: ALPRAZOLAM 0.25 MG TABLET PO PRN (22:57)
[2019-02-22] MEDS: IPRATROPIUM BROM 0.5MG/2.5ML NEB SCH ×4 (01:40→20:19)
[2019-02-22] MEDS: ALBUTEROL 2.5 MG/3 ML NEB SOL NEB SCH ×4 (01:40→20:19)
[2019-02-22 05:57] LABS: Absolute Lymphocytes (CBC) 2.2 K/uL (0.7-4.9); Absolute Monocytes 1.6 K/uL (0.1-1.3); Absolute Neutrophil 5.9 K/uL (1.8-8.0); Basophils % 0.8 % (0-1.3); Eosinophils % 1.7 % (0-4.4); Hematocrit 30.6 % (36.0-45.0); Lymphocytes % 22.3 % (15.3-44.8); MPV 7.6 fL (7.6-11.3); RBC Red Blood Cell Count 3.08 M/uL (3.86-4.86)
[2019-02-22] MEDS: LEVOTHYROXINE SOD 0.05 MG TABLET PO SCH (06:02)
[2019-02-22 06:13] LABS: ALT/SGPT 48 U/L (12-78); AST/SGOT 23 U/L (15-37); Albumin 2.6 g/dL (3.4-5.0); Alkaline Phosphatase 58 U/L (45-117); BUN Blood Urea Nitrogen 11 mg/dL (7-18); Bicarbonate 24 mmol/L (21-32); Bilirubin Total 0.3 mg/dL (0.2-1.0); Glucose Level 90 mg/dL (74-106); Potassium 3.3 mmol/L (3.5-5.1); Sodium Level 144 mmol/L (136-145)
[2019-02-22] MEDS: DULERA 100/5 (MOMETASONE/FORMOTEROL) INHALER IH SCH ×2 (08:36→20:02)
[2019-02-22] MEDS: CEFTRIAXONE/SWI 1gm 1 GM/10 ML SYR IV SCH ×2 (08:36→20:02)
[2019-02-22] MEDS: RIVASTIGMINE 4.6 MG/24 HR PATCH TD SCH (08:37)
[2019-02-22] MEDS: FAMOTIDINE 20 MG/2 ML VIAL IV SCH ×2 (08:38→20:03)
[2019-02-22] MEDS: SOTALOL HCL 80 MG TAB PO SCH ×2 (08:38→20:02)
[2019-02-22] MEDS: MONTELUKAST 10 MG TAB PO SCH (08:38)
[2019-02-22] MEDS: AMLODIPINE 10 MG TAB PO SCH (08:39)
[2019-02-22] MEDS: FLUOXETINE 20 MG CAP PO SCH (08:39)
[2019-02-22] MEDS: DABIGATRAN 150 MG CAP PO SCH ×2 (08:40→20:03)
[2019-02-22] MEDS: MAGNESIUM CHLORIDE 64 MG TAB PO SCH (08:40)
--- NOTE | 2019-02-22 11:10 | P.PN ---
Subjective Date of Service: 02/22/19 Patient seen and examined at bedside with RN. Chart reviewed. Case discussed with family member over the phone. Patient this morning doing well overall states that she is ready to go home however today feels just slightly more weaker than past couple of days Review of Systems 10-point ROS is otherwise unremarkable Physical Examination - Vital Signs Temperature: 98.5 F Blood Pressure: 141/71 Pulse: 70 Respirations: 20 Pulse Ox (%): 93 - Physical Exam General: Alert, In no apparent distress HEENT: Atraumatic, PERRLA, EOMI Neck: Supple, JVD not distended Respiratory: Clear to auscultation bilaterally, Normal air movement Cardiovascular: Regular rate/rhythm, Normal S1 S2 Gastrointestinal: Normal bowel sounds, No tenderness Musculoskeletal: No tenderness Integumentary: No rashes Neurological: Normal speech, Normal tone, Normal affect Lymphatics: No axilla or inguinal lymphadenopathy - Studies Microbiology Data (last 24 hrs): 02/16/19 21:00 Blood - Blood Aerobic Blood Culture - Final No growth in 5 days. 02/16/19 21:00 Blood - Blood Anaerobic Blood Culture - Final No growth in 5 days. 02/16/19 21:00 Blood - Blood Aerobic Blood Culture - Final No growth in 5 days. 02/16/19 21:00 Blood - Blood Anaerobic Blood Culture - Final No growth in 5 days. Medications List Reviewed: Yes Assessment And Plan - Current Problems (Diagnosis) (1) PNA (pneumonia) Current Visit: Yes Status: Acute Plan: Multilobar PNA most likely bacterial -WBC WNL now -Currently on IV abx. -Will continue for next 24 hr and then switch to oral medication -F.U with Culture. Negative thus Far Qualifiers: Pneumonia type: due to unspecified organism Laterality: bilateral Lung location: unspecified part of lung Qualified Code(s): J18.9 - Pneumonia, unspecified organism (2) COPD (chronic obstructive pulmonary disease) Current Visit: Yes Status: Acute Plan: COPD with acute Exacerbation -Duonebs and oxygen for now. No Steroids -Added Dulera and pt improved markedly now Qualifiers: COPD type: COPD with acute exacerbation Qualified Code(s): J44.1 - Chronic obstructive pulmonary disease with (acute) exacerbation (3) Atrial fibrillation Current Visit: Yes Status: Chronic Qualifiers: Atrial fibrillation type: chronic Qualified Code(s): I48.2 - Chronic atrial fibrillation (4) HTN (hypertension) Current Visit: Yes Status: Chronic Plan: BP WNL now. -Now on amlodipine 10mg daily Qualifiers: Hypertension type: essential hypertension Qualified Code(s): I10 - Essential (primary) hypertension (5) Hypothyroid Current Visit: Yes Status: Chronic Qualifiers: Hypothyroidism type: acquired Qualified Code(s): E03.9 - Hypothyroidism, unspecified - Plan Pending Clinical Improvement. BP finally is WNL now. Will observe for next 24hrs. Physical therapy to help ambulate the patient. Patient working with physical therapy as well doing well. May need HH upon discharge. Discharge Plan: Home Plan to discharge in: Greater than 2 days - Code Status/Comfort Care Code Status Assessed: Yes Critical Care: No
[2019-02-22] MEDS: AZITHROMYCIN IV 500 MG in NA CHLORIDE 0.9% 250 ML IVPB SCH (20:02)
[2019-02-22] MEDS: ACETAMINOPHEN 325 MG TABLET PO PRN (20:48)
[2019-02-22] MEDS: ALPRAZOLAM 0.25 MG TABLET PO PRN (22:03)
[2019-02-23] MEDS: IPRATROPIUM BROM 0.5MG/2.5ML NEB SCH ×4 (02:35→20:00)
[2019-02-23] MEDS: ALBUTEROL 2.5 MG/3 ML NEB SOL NEB SCH ×4 (02:35→20:00)
[2019-02-23 05:33] LABS: Absolute Lymphocytes (CBC) 1.9 K/uL (0.7-4.9); Absolute Monocytes 1.2 K/uL (0.1-1.3); Absolute Neutrophil 3.9 K/uL (1.8-8.0); Basophils % 1.1 % (0-1.3); Eosinophils % 1.8 % (0-4.4); Hematocrit 30.6 % (36.0-45.0); Lymphocytes % 26.3 % (15.3-44.8); MPV 7.3 fL (7.6-11.3); Monocytes % 16.8 % (3.3-12.3); RBC Red Blood Cell Count 3.07 M/uL (3.86-4.86)
[2019-02-23] MEDS: LEVOTHYROXINE SOD 0.05 MG TABLET PO SCH (05:34)
[2019-02-23 05:57] LABS: ALT/SGPT 54 U/L (12-78); AST/SGOT 25 U/L (15-37); Albumin 2.6 g/dL (3.4-5.0); Alkaline Phosphatase 60 U/L (45-117); BUN Blood Urea Nitrogen 12 mg/dL (7-18); Bicarbonate 25 mmol/L (21-32); Bilirubin Total 0.3 mg/dL (0.2-1.0); Glucose Level 90 mg/dL (74-106); Potassium 3.3 mmol/L (3.5-5.1); Protein, Total 5.9 g/dL (6.4-8.2); Sodium Level 142 mmol/L (136-145)
[2019-02-23] MEDS: DULERA 100/5 (MOMETASONE/FORMOTEROL) INHALER IH SCH ×2 (09:00→22:10)
[2019-02-23] MEDS: SOTALOL HCL 80 MG TAB PO SCH ×2 (09:31→22:09)
[2019-02-23] MEDS: AMLODIPINE 10 MG TAB PO SCH (09:31)
[2019-02-23] MEDS: MONTELUKAST 10 MG TAB PO SCH (09:32)
[2019-02-23] MEDS: RIVASTIGMINE 4.6 MG/24 HR PATCH TD SCH (09:32)
[2019-02-23] MEDS: DABIGATRAN 150 MG CAP PO SCH ×2 (09:32→22:10)
[2019-02-23] MEDS: MAGNESIUM CHLORIDE 64 MG TAB PO SCH (09:32)
[2019-02-23] MEDS: FLUOXETINE 20 MG CAP PO SCH (09:32)
[2019-02-23] MEDS: FAMOTIDINE 20 MG/2 ML VIAL IV SCH ×2 (09:33→22:10)
[2019-02-23] MEDS: CEFTRIAXONE/SWI 1gm 1 GM/10 ML SYR IV SCH ×2 (09:34→22:11)
[2019-02-23] MEDS: GUAIFENESIN/DM 5 ML UCUP PO PRN (22:08)
[2019-02-23] MEDS: ALPRAZOLAM 0.25 MG TABLET PO PRN (22:09)
[2019-02-23] MEDS: AZITHROMYCIN IV 500 MG in NA CHLORIDE 0.9% 250 ML IVPB SCH (22:17)
[2019-02-23] MEDS: ACETAMINOPHEN 325 MG TABLET PO PRN (22:18)
[2019-02-24] MEDS: ALBUTEROL 2.5 MG/3 ML NEB SOL NEB SCH ×2 (02:00→07:35)
[2019-02-24] MEDS: IPRATROPIUM BROM 0.5MG/2.5ML NEB SCH ×2 (02:00→07:35)
--- NOTE | 2019-02-24 02:07 | PN ---
Date of Progress Note: 02/23/2019 Subjective: The patient was seen this morning for followup. She is feeling much better today compar ed to last time when I saw her on . Cough, congestion, shortness of breath have improved. G eneralized weakness is improving. She is ambulating better than last week. Objective: Vital Signs: Reviewed. HEENT: Unremarkable. Lungs: Clear to auscultation. No wheezing. Minimum basal rales present in the left lung. Heart: Sounds normal. Abdomen: Soft. Bowel sounds normal. No guarding, rigidity, tenderness, or distention. Extremities: No leg edema. Laboratory Data: White count 7.2, hemoglobin 10.2, platelets 315. Sodium 142, potassium 3.3, chlori de 109, bicarb 25, BUN 12, creatinine 0.49, glucose 9 0. Impression: 1.Pneumonia. 2.COPD. 3.Hypokalemia. 4.Anemia. 5.Atrial fibrillation. Plan: Continue current medications. Continue current antibiotic. We will get echo with Doppler [place]. Ambulation was encouraged. Possible discharge to go home tomorrow. We will continue current oxygen nebulizer treatment, etc. REDDY/MODL Voice ID: [id number] Report ID: [id number]
[2019-02-24] MEDS: LEVOTHYROXINE SOD 0.05 MG TABLET PO SCH (06:23)
[2019-02-24 07:15] LABS: Absolute Lymphocytes (CBC) 2.2 K/uL (0.7-4.9); Absolute Monocytes 0.9 K/uL (0.1-1.3); Absolute Neutrophil 4.5 K/uL (1.8-8.0); Basophils % 0.9 % (0-1.3); Eosinophils % 1.4 % (0-4.4); Hematocrit 30.9 % (36.0-45.0); Lymphocytes % 27.9 % (15.3-44.8); MPV 7.2 fL (7.6-11.3); Monocytes % 11.3 % (3.3-12.3); RBC Red Blood Cell Count 3.11 M/uL (3.86-4.86)
[2019-02-24 07:38] LABS: ALT/SGPT 57 U/L (12-78); AST/SGOT 25 U/L (15-37); Albumin 2.7 g/dL (3.4-5.0); Alkaline Phosphatase 64 U/L (45-117); BUN Blood Urea Nitrogen 14 mg/dL (7-18); Bicarbonate 26 mmol/L (21-32); Bilirubin Total 0.3 mg/dL (0.2-1.0); Glucose Level 82 mg/dL (74-106); Potassium 3.8 mmol/L (3.5-5.1); Protein, Total 6.3 g/dL (6.4-8.2); Sodium Level 142 mmol/L (136-145)
--- NOTE | 2019-02-24 08:04 | ECHO ---
HEIGHT: 5 ft 3 in WEIGHT: 121 lb 14.4 oz DATE OF STUDY: 02/23/[address]: You Augustin MD 2-DIMENSIONAL: YES M.MODE: YES DOPPLER: YES COLOR FLOW: YES TDS: NO PORTABLE: NO DEFINITY: NO BUBBLE STUDY: NO DIAGNOSIS: ATRIAL FIBRILLATION CARDIAC HISTORY: CATHERIZATION: NO SURGERY: NO PROSTHETIC VALVE: NO PACEMAKER: NO MEASUREMENTS (cm) DIASTOLIC (NORMALS) SYSTOLIC (NORMALS) IVSd 0.9 (0.6-1.2) LA Diam 3.0 (1.9-4.0) LVEF 56% LVIDd 4.1 (3.5-5.7) LVIDs 2.9 (2.0-3.5) %FS 29% LVPWd 0.8 (0.6-1.2) Ao Diam 2.3 (2.0-3.7) 2 DIMENSIONAL ASSESSMENT: RIGHT ATRIUM: NORMAL LEFT ATRIUM: NORMAL RIGHT VENTRICLE: NORMAL LEFT VENTRICLE: NORMAL TRICUSPID VALVE: NORMAL MITRAL VALVE: NORMAL PULMONIC VALVE: NORMAL AORTIC VALVE: NORMAL PERICARDIAL EFFUSION: NONE AORTIC ROOT: NORMAL LEFT VENTRICULAR WALL MOTION: NORMAL DOPPLER/COLOR FLOW: MILD MITRAL AND TRICUSPID REGURGITATION. ESTIMATED RIGHT VENTRICULAR SYSTOLIC PRESSURE 45mmHg. MILD PULMONARY HYPERTENSION. COMMENTS: NORMAL 2D ECHOCARDIOGRAM. MILD MITRAL AND TRICUSPID REGURGITATION. TECHNOLOGIST: Catracho FERNANDEZ
[2019-02-24] MEDS: RIVASTIGMINE 4.6 MG/24 HR PATCH TD SCH (09:54)
[2019-02-24] MEDS: CEFTRIAXONE/SWI 1gm 1 GM/10 ML SYR IV SCH (09:55)
[2019-02-24] MEDS: AMLODIPINE 10 MG TAB PO SCH (09:56)
[2019-02-24] MEDS: SOTALOL HCL 80 MG TAB PO SCH (09:56)
[2019-02-24] MEDS: FLUOXETINE 20 MG CAP PO SCH (09:56)
[2019-02-24] MEDS: DABIGATRAN 150 MG CAP PO SCH (09:57)
[2019-02-24] MEDS: DULERA 100/5 (MOMETASONE/FORMOTEROL) INHALER IH SCH (09:57)
[2019-02-24] MEDS: MAGNESIUM CHLORIDE 64 MG TAB PO SCH (09:57)
[2019-02-24] MEDS: MONTELUKAST 10 MG TAB PO SCH (09:57)
[2019-02-24] MEDS: FAMOTIDINE 20 MG/2 ML VIAL IV SCH (09:58)
[2019-02-24 10:08] VITALS: O2SAT 96
[2019-02-24 12:05] VITALS: BP 164/88; TEMP 98.2
[2019-02-24] MEDS ORDERED: AZITHROMYCIN IV 500 MG in NA CHLORIDE 0.9% 250 ML IVPB SCH (21:00)
--- NOTE | 2019-02-26 03:40 | DS ---
Date of Discharge: 02/24/2019 Disposition: Discharged to go home. Physical Examination: HEENT: Unremarkable. Lungs: Clear to auscultation. Heart: Sounds normal. Abdomen: Soft. Bowel sounds normal. No guarding, rigidity, tenderness, distention. Extremities: No leg edema. Laboratory Data: Labs done during this hospitalization; last white count today 7.7, hemoglobin is 10 .4, platelets 322. Upon admission, white count was 31.9, hemoglobin 12.7, platelets 422. Her chemis try upon admission; sodium 135, potassium 3.9, chloride 99, bicarb 28, BUN 25, creatinine 0.84, gluco se 107. Liver function tests unremarkable. Troponin less than 0.02. Procalcitonin less than 0.05. Last chemistry today; sodium 142, potassium 3.8, chloride 110, bicarb 26, BUN 14, creatinine 0.59, g lucose 82. Hospital Course: This 88-year-old female patient admitted to the hospital when she came into emergen cy room with cough, shortness of breath, and feeling bad. Please see dictated H and P for more infor mation. The patient had workup done in the emergency room, that revealed elevated white count. Her CAT scan of the chest per PE protocol was negative for pulmonary embolism, but showed bilateral multi focal pneumonia. Streptococcal screen was negative. Influenza A and B were negative. After she was admitted to the hospital, she was treated with oxygen nebulizer treatment, empiric antibiotics, and her home medications were continued including her anticoagulation medication, Pradaxa b.i.d. Overall , her condition improved. Physical Therapy was consulted. She started ambulating well. She is feel ing overall much better compared to before. Echocardiogram was ordered, which was done yesterday; re sult was pending when I saw her, and I will follow up on the result. Discharge Medications And Instructions: 1.Continue all prior home medication. 2.Cefuroxime 250 mg 1 tablet p.o. twice a day with food for 1 week. 3.Follow up at my office in 2 weeks. Discharge Diagnoses: 1.Pneumonia. 2.COPD. 3.Paroxysmal atrial fibrillation. 4.Chronic anticoagulation therapy. 5.Hypertension. 6.Hyperlipidemia. 7.Hypothyroidism. 8.Hypomagnesemia. 9.Depression. 10.Osteoarthritis, multiple sites. 11.Allergic rhinitis. REDDY/MODL Voice ID: [id number] Report ID: [id number]
== END 2019-02-24 13:03 | disposition home or self-care (01) | DRG 194 ==
LOC: ER 19:58 → ERHOLD 22:07 → 4TH 02-17 07:54
PROVIDERS: ADMIT Internal Medicine; ATTEND Internal Medicine
DX: J18.9 Pneumonia, unspecified organism (principal); J44.0 Chronic obstructive pulmonary disease with (acute) lower respiratory infection; J44.1 Chronic obstructive pulmonary disease with (acute) exacerbation; I48.0 Paroxysmal atrial fibrillation; I10 Essential (primary) hypertension; E03.9 Hypothyroidism, unspecified; E83.42 Hypomagnesemia; F32.9 Major depressive disorder, single episode, unspecified; M19.90 Unspecified osteoarthritis, unspecified site; J30.9 Allergic rhinitis, unspecified; E87.6 Hypokalemia; Z79.01 Long term (current) use of anticoagulants
CPT/HCPCS: 36415; 71045; 71046; 71275; 80048; 80053; 80076; 81003; 83605; 83690; 83735; 83880; 84145; 84443; 84484; 85025; 85379; 85610; 87040; 87070; 87081; 87086; 87088; 87804; 93005; 93306; 94640; 94760; 96361; 96365; 96367; 96375; 97112; 97116; 97162; 99285; J0456; J0696; J2405; J2930; J7030; J7606; Q9967

== ENCOUNTER 2019-03-20 20:05 | Emergency (ER) | payer BC ==
--- NOTE | 2019-03-20 20:44 | RAD REPORT ---
EXAM DESCRIPTION: CT - Head Brain Wo Cont - 03/20/2019 8:29 pm CLINICAL HISTORY: Slurred speech, transient alteration of awareness COMPARISON: CT October 2014. TECHNIQUE: Axial 5 mm thick images of the head were obtained without IV contrast. All CT scans are performed using dose optimization technique as appropriate and may include automated exposure control or mA/KV adjustment according to patient size. FINDINGS: No intracranial hemorrhage, mass, edema or shift of mid-line structures. No acute infarcti on changes seen. No cortical edema or sulcal effacement. Prominent atrophy changes are present. Ventr icles are in proportion to volume loss. Chronic ischemic changes are present. Findings have shown betito e progression from 2014. Arterial and physiologic calcifications are present. Mastoid air cells and visualized portions of the paranasal sinuses are clear. No acute bony findings. IMPRESSION: Prominent atrophy and chronic ischemic change. Findings are progressive from 2014. No hemorrhage, acute cortical infarction or other acute intracranial finding.
[2019-03-20 21:38] LABS: ALT/SGPT 35 U/L (12-78); AST/SGOT 28 U/L (15-37); Albumin 3.8 g/dL (3.4-5.0); Alkaline Phosphatase 98 U/L (45-117); BUN Blood Urea Nitrogen 21 mg/dL (7-18); Bicarbonate 26 mmol/L (21-32); Bilirubin Direct < 0.1 mg/dL (0-0.2); Bilirubin Total 0.2 mg/dL (0.2-1.0); Glucose Level 81 mg/dL (74-106); Potassium 4.2 mmol/L (3.5-5.1); Protein, Total 7.9 g/dL (6.4-8.2); Sodium Level 137 mmol/L (136-145)
[2019-03-20] MEDS ORDERED: THIAMINE 200 MG/2 ML INJ ONE (21:54)
[2019-03-20] MEDS ORDERED: NA CHLORIDE 0.9% 500 ML ONE (21:54)
--- NOTE | 2019-03-20 21:55 | ER ---
Nurse's Notes [facility] Name: Charisse Guthrie Age: 88 yrs Sex: Female : 1930 Arrival Date: 03/20/2019 Time: 20:07 Bed 4 Private MD: Diagnosis: Altered mental status, unspecified;Alcohol abuse with intoxication Presentation: 03/20 20:09 Presenting complaint: EMS states: pt was at [employer] and when she got up from the bar aa1 she dropped her keys and began to stumble and when the waitresses went to catch her she became combative and was fighting them. Reports pt had about 3-4 glasses of wine. Upon arrival to ED pt A\T\O x4. Denies pain. Appears to be intoxicated. Transition of care: patient was not received from another setting of care. Onset of symptoms was March 20, 2019. Risk Assessment: Do you want to hurt yourself or someone else? Patient reports no desire to harm self or others. Initial Sepsis Screen: Does the patient meet any 2 criteria? No. Patient's initial sepsis screen is negative. Does the patient have a suspected source of infection? No. Patient's initial sepsis screen is negative. Care prior to arrival: Glucose check: 101. 20:09 Method Of Arrival: EMS: [facility] aa1 20:09 Acuity: JOYCE 3 aa1 Historical: - Allergies: 20:19 No Known Allergies; aa1 - Home Meds: 20:19 Aspirin Oral [Active]; fluoxetine 20 mg Oral cap 1 cap once daily [Active]; montelukast aa1 Oral [Active]; Pradaxa 150 mg Oral cap 1 cap 2 times per day [Active]; sotalol 120 mg Oral tab 1 tab 2 times per day [Active]; Spiriva Respimat inhalation [Active]; Synthroid 25 mcg Oral tab 1 tab once daily [Active]; Vitamin D Oral [Active]; Zoloft Oral [Active]; - PMHx: 20:19 Atrial Fib; Hypertension; SVT; aa1 - Immunization history:: Flu vaccine is up to date. - Social history:: Smoking status: Patient/guardian denies using tobacco. - Ebola Screening: : No symptoms or risks identified at this time. - Family history:: not pertinent. Screenin:20 Abuse screen: Denies threats or abuse. Nutritional screening: No deficits noted. tl2 Tuberculosis screening: No symptoms or risk factors identified. Fall Risk IV access (20 points). Gait- Impaired (20 pts.). Assessment: 20:20 General: Appears in no apparent distress. comfortable, Behavior is agitated, Smells of tl2 alcohol. 20:20 Pain: Denies pain. Neuro: Level of Consciousness is awake, alert, confused, Oriented to tl2 person. Neuro: Binder Selector are equal bilaterally Gait is unsteady, Speech is normal, Facial symmetry appears normal. Cardiovascular: Denies chest pain. Respiratory: Airway is patent Respiratory effort is even, unlabored, Respiratory pattern is regular, symmetrical. GI: No signs and/or symptoms were reported involving the gastrointestinal system. : No signs and/or symptoms were reported regarding the genitourinary system. Derm: Skin is pink, warm \T\ dry. 21:59 Reassessment: Will discharge after fluids have completed and remaining labs have tl2 resulted. Daughter at bedside. 22:58 Reassessment: Patient appears in no apparent distress at this time. Patient and/or tl2 family updated on plan of care and expected duration. Pain level reassessed. pt stable and ready for discharge, daughter will be taking pt home. No question or concerns at this time. Pt and family verbalized understanding of discharge instructions and prescription usage. Vital Signs: 20:19 BP 125 / 74; Pulse 73; Resp 18; Temp 97.5; Pulse Ox 98% on R/A; Weight 53.52 kg; Height aa1 5 ft. 4 in. (162.56 cm); Pain 0/10; 22:12 BP 132 / 80; Pulse 73; Resp 18; Pulse Ox 98% on R/A; tl2 20:19 Body Mass Index 20.25 (53.52 kg, 162.56 cm) aa1 ED Course: 20:07 Patient arrived in ED. aa1 20:15 Triage completed. aa1 20:19 Arm band placed on left wrist. aa1 20:[address] via stretcher. vm2 20:20 Patient has correct armband on for positive identification. Placed in gown. Bed in low tl2 position. Call light in reach. Side rails up X2. 20:28 CT completed. Patient tolerated procedure well. Patient moved back from CT. ct 20:29 CT Head Brain wo Cont In Process Unspecified. EDMS 20:29 Francisco Marsh MD is Attending Physician. kristin 21:14 Minoo Green, RN is Primary Nurse. tl2 21:17 Inserted saline lock: 22 gauge in right antecubital area, using aseptic technique. oe Blood collected. 21:54 You Augustin MD is Referral Physician. [facility] 22:58 No provider procedures requiring assistance completed. IV discontinued, intact, tl2 bleeding controlled, No redness/swelling at site. Pressure dressing applied. Administered Medications: 21:57 Drug: NS 0.9% 500 ml Route: IV; Rate: bolus; Site: right antecubital; tl2 23:00 Follow up: IV Status: Completed infusion; IV Intake: 500ml tl2 21:58 Drug: Thiamine 100 mg Route: IV; Rate: bolus; Site: right antecubital; tl2 23:01 Follow up: IV Status: Completed infusion tl2 Intake: 23:00 IV: 500ml; Total: 500ml. tl2 Outcome: 21:54 Discharge ordered by . [facility] 22:58 Discharged to home via wheelchair, with family. tl2 22:58 Condition: stable 22:58 Discharge instructions given to patient, family, Instructed on discharge instructions, follow up and referral plans. medication usage, safety practices, Demonstrated understanding of instructions, follow-up care, medications, Prescriptions given X 1. 23:01 Patient left the ED. tl2 Signatures: Dispatcher [employer] EDMS Lynette Anguiano RN RN aa1 Francisco Marsh MD MD cha Knox, Taylor, RN RN tl2 Jamie Monroy Orlando Rosa Garcia [facility] Corrections: (The following items were deleted from the chart) 22:01 20:20 General: Appears in no apparent distress. tl2 tl2 22:02 22:00 Pain: Denies pain. tl2 tl2 22:02 22:00 Neuro: Level of Consciousness is awake, alert, confused, Oriented to person, tl2 tl2 22:02 22:00 Cardiovascular: Denies chest pain, tl2 tl2 22:02 22:00 Respiratory: Airway is patent Respiratory effort is even, unlabored, Respiratory tl2 pattern is regular, symmetrical, tl2 22:02 22:00 GI: No signs and/or symptoms were reported involving the gastrointestinal system. tl2 tl2 22: 22:00 : No signs and/or symptoms were reported regarding the genitourinary system. tl2tl2 22: 22:00 Derm: Skin is pink, warm \T\ dry. tl2 tl2 22: 22:00 Neuro: Binder Selector are equal bilaterally Gait is unsteady, Speech is normal, Facial tl2 symmetry appears normal, tl2
--- NOTE | 2019-03-20 21:55 | EDPHYS ---
Physician Documentation [facility] Name: Charisse Guthrie Age: 88 yrs Sex: Female : 1930 Arrival Date: 03/20/2019 Time: 20:07 Bed 4 Private MD: ED Physician Francisco Marsh HPI: 03/20 20:57 This 88 yrs old Female presents to ER via EMS with complaints of Altered kristin Mental Status. 20:57 The patient presents with decreased mental status, decreased responsiveness, trouble kristin concentrating. Onset: The symptoms/episode began/occurred just prior to arrival. Possible causes: alcohol. Associated signs and symptoms: Pertinent positives: dizziness, lightheadedness. Current symptoms: In the emergency department the patient's symptoms have improved, acting intoxicated. Patient's baseline: Neuro: alert and fully oriented. It is unknown whether or not the patient has had similar symptoms in the past. Historical: - Allergies: 20:19 No Known Allergies; aa1 - Home Meds: 20:19 Aspirin Oral [Active]; fluoxetine 20 mg Oral cap 1 cap once daily [Active]; montelukast aa1 Oral [Active]; Pradaxa 150 mg Oral cap 1 cap 2 times per day [Active]; sotalol 120 mg Oral tab 1 tab 2 times per day [Active]; Spiriva Respimat inhalation [Active]; Synthroid 25 mcg Oral tab 1 tab once daily [Active]; Vitamin D Oral [Active]; Zoloft Oral [Active]; - PMHx: 20:19 Atrial Fib; Hypertension; SVT; aa1 - Immunization history:: Flu vaccine is up to date. - Social history:: Smoking status: Patient/guardian denies using tobacco. - Ebola Screening: : No symptoms or risks identified at this time. - Family history:: not pertinent. ROS: 20:57 Constitutional: Negative for fever, chills, and weight loss, Eyes: Negative for injury, kristin pain, redness, and discharge, ENT: Negative for injury, pain, and discharge, Neck: Negative for injury, pain, and swelling, Cardiovascular: Negative for chest pain, palpitations, and edema, Respiratory: Negative for shortness of breath, cough, wheezing, and pleuritic chest pain, Abdomen/GI: Negative for abdominal pain, nausea, vomiting, diarrhea, and constipation, Back: Negative for injury and pain, : Negative for injury, bleeding, discharge, and swelling, MS/Extremity: Negative for injury and deformity, Skin: Negative for injury, rash, and discoloration, Psych: Negative for depression, anxiety, suicide ideation, homicidal ideation, and hallucinations, Allergy/Immunology: Negative for hives, rash, and allergies, Endocrine: Negative for neck swelling, polydipsia, polyuria, polyphagia, and marked weight changes, Hematologic/Lymphatic: Negative for swollen nodes, abnormal bleeding, and unusual bruising. 20:57 Neuro: Positive for weakness. Exam: 20:57 Constitutional: This is a well developed, well nourished patient who is awake, alert, kristin and in no acute distress. Head/Face: Normocephalic, atraumatic. Eyes: Pupils equal round and reactive to light, extra-ocular motions intact. Lids and lashes normal. Conjunctiva and sclera are non-icteric and not injected. Cornea within normal limits. Periorbital areas with no swelling, redness, or edema. ENT: Nares patent. No nasal discharge, no septal abnormalities noted. Tympanic membranes are normal and external auditory canals are clear. Oropharynx with no redness, swelling, or masses, exudates, or evidence of obstruction, uvula midline. Mucous membranes moist. Neck: Trachea midline, no thyromegaly or masses palpated, and no cervical lymphadenopathy. Supple, full range of motion without nuchal rigidity, or vertebral point tenderness. No Meningismus. Chest/axilla: Normal chest wall appearance and motion. Nontender with no deformity. No lesions are appreciated. Cardiovascular: Regular rate and rhythm with a normal S1 and S2. No gallops, murmurs, or rubs. Normal PMI, no JVD. No pulse deficits. Respiratory: Lungs have equal breath sounds bilaterally, clear to auscultation and percussion. No rales, rhonchi or wheezes noted. No increased work of breathing, no retractions or nasal flaring. Abdomen/GI: Soft, non-tender, with normal bowel sounds. No distension or tympany. No guarding or rebound. No evidence of tenderness throughout. Back: No spinal tenderness. No costovertebral tenderness. Full range of motion. Skin: Warm, dry with normal turgor. Normal color with no rashes, no lesions, and no evidence of cellulitis. MS/ Extremity: Pulses equal, no cyanosis. Neurovascular intact. Full, normal range of motion. Psych: Awake, alert, with orientation to person, place and time. Behavior, mood, and affect are within normal limits. 20:57 Neuro: Orientation: is normal, appropriate for stated age, no acute changes, Mentation: slow to respond, Memory: immediate memory is impaired, remote memory is intact. recent memory the patient can't recall what they had for dinner last night, Cerebellar function: unable to test, Gait: not tested. Babinski testing is normal, seizure activity, is not displayed by the patient. Vital Signs: 20:19 BP 125 / 74; Pulse 73; Resp 18; Temp 97.5; Pulse Ox 98% on R/A; Weight 53.52 kg; Height aa1 5 ft. 4 in. (162.56 cm); Pain 0/10; 22:12 BP 132 / 80; Pulse 73; Resp 18; Pulse Ox 98% on R/A; tl2 20:19 Body Mass Index 20.25 (53.52 kg, 162.56 cm) aa1 MDM: 20:29 Patient medically screened. [facility] 20:57 Data reviewed: vital signs, nurses notes, lab test result(s), EKG, radiologic studies, [facility] scan, plain films. 03/20 20:30 Order name: Acetaminophen [facility] 03/20 20:30 Order name: Basic Metabolic Panel [facility] 03/20 20:30 Order name: CBC with Diff [facility] 03/20 20:30 Order name: ETOH Level [facility] 03/20 20:30 Order name: Hepatic Function [facility] 03/20 20:30 Order name: PT-INR [facility] 03/20 20:30 Order name: Ptt, Activated; Complete Time: 22:36 [facility] 03/20 20:30 Order name: Salicylate; Complete Time: 21:53 [facility] 03/20 20:30 Order name: Urine Drug Screen; Complete Time: 22:36 [facility] 03/20 20:31 Order name: Acetaminophen Level; Complete Time: 21:53 [facility] 03/20 20:31 Order name: Basic Metabolic Panel; Complete Time: 21:53 [facility] 03/20 20:32 Order name: CBC with Automated Diff; Complete Time: 22:36 [facility] 03/20 20:32 Order name: Alcohol Serum/Plasma; Complete Time: 21:53 [facility] 03/20 20:32 Order name: Liver (Hepatic) Function; Complete Time: 21:53 [facility] 03/20 20:17 Order name: CT Head Brain wo Cont; Complete Time: 21:53 [facility] 03/20 20:30 Order name: EKG; Complete Time: 20:32 [facility] 03/20 20:30 Order name: EKG - Nurse/Tech; Complete Time: 20:35 [facility] 03/20 20:30 Order name: IV Saline Lock; Complete Time: 21:15 [facility] 03/20 20:30 Order name: Labs collected and sent; Complete Time: 21:15 [facility] 03/20 20:30 Order name: Urine Dipstick-Ancillary (obtain specimen); Complete Time: 21:36 [facility] 03/20 20:32 Order name: Protime (+INR); Complete Time: 22:36 [facility] 03/20 21:51 Order name: Urine Dipstick--Ancillary (enter results); Complete Time: 22:36 cm6 Administered Medications: 21:57 Drug: NS 0.9% 500 ml Route: IV; Rate: bolus; Site: right antecubital; tl2 23:00 Follow up: IV Status: Completed infusion; IV Intake: 500ml tl2 21:58 Drug: Thiamine 100 mg Route: IV; Rate: bolus; Site: right antecubital; tl2 23:01 Follow up: IV Status: Completed infusion tl2 Disposition: 03/20/19 21:54 Discharged to Home. Impression: Altered mental status, unspecified, Alcohol abuse with intoxication. - Condition is Stable. - Discharge Instructions: Alcohol Intoxication, Confusion, Alcohol Intoxication, [id number], Alcohol Abuse and Nutrition. - Prescriptions for Vitamin 27- 0.8 mg Oral Tablet - take 1 tablet by ORAL route once daily; 30 tablet. - Medication Reconciliation Form, Thank You Letter, Antibiotic Education, Prescription Opioid Use form. - Follow up: Private Physician; When: 2 - 3 days; Reason: Recheck today's complaints, Continuance of care, Re-evaluation by your physician. Follow up: You Augustin MD; When: 2 - 3 days; Reason: Recheck today's complaints, Continuance of care, Re-evaluation by your physician. - Problem is new. - Symptoms have improved. Signatures: Dispatcher [employer] Lynette Squires RN RN aa1 Francisco Marsh MD MD cha Knox, Taylor RN RN tl2 Corrections: (The following items were deleted from the chart) 21:54 21:54 03/20/2019 21:54 Discharged to Home. Impression: Altered mental status, kristin unspecified; Alcohol abuse with intoxication. Condition is Stable. Discharge Instructions: Alcohol Intoxication, Confusion, Alcohol Intoxication, [id number], Alcohol Abuse and Nutrition. Forms are Medication Reconciliation Form, Thank You Letter, Antibiotic Education, Prescription Opioid Use. Follow up: Private Physician; When: 2 - 3 days; Reason: Recheck today's complaints, Continuance of care, Re-evaluation by your physician. Problem is new. Symptoms have improved. kristin 23:01 21:54 03/20/2019 21:54 Discharged to Home. Impression: Altered mental status, tl2 unspecified; Alcohol abuse with intoxication. Condition is Stable. Discharge Instructions: Alcohol Intoxication, Confusion, Alcohol Intoxication, [id number], Alcohol Abuse and Nutrition. Forms are Medication Reconciliation Form, Thank You Letter, Antibiotic Education, Prescription Opioid Use. Follow up: Private Physician; When: 2 - 3 days; Reason: Recheck today's complaints, Continuance of care, Re-evaluation by your physician. Follow up: You Augustin; When: 2 - 3 days; Reason: Recheck today's complaints, Continuance of care, Re-evaluation by your physician. Problem is new. Symptoms have improved. kristin
[2019-03-20 21:57] LABS: Urine Blood NEGATIVE (NEG); Urine Glucose NEGATIVE (NEG); Urine Protein NEGATIVE (NEG)
[2019-03-20 22:00] LABS: Barbiturates NEGATIVE (NEGATIVE); Benzodiazepines NEGATIVE (NEGATIVE); Cocaine NEGATIVE (NEGATIVE); METHAMPHETAM NEGATIVE (NEGATIVE); Methadone NEGATIVE (NEGATIVE); Opiates NEGATIVE (NEGATIVE); Phencyclidine NEGATIVE (NEGATIVE); THC Cannibis NEGATIVE (NEGATIVE)
[2019-03-20 22:16] LABS: Absolute Lymphocytes (CBC) 4.1 K/uL (0.7-4.9); Absolute Monocytes 0.8 K/uL (0.1-1.3); Absolute Neutrophil 3.7 K/uL (1.8-8.0); Basophils % 0.7 % (0-1.3); Eosinophils % 2.1 % (0-4.4); Hematocrit 37.2 % (36.0-45.0); Lymphocytes % 46.1 % (15.3-44.8); MPV 7.7 fL (7.6-11.3); Monocytes % 9.4 % (3.3-12.3); RBC Red Blood Cell Count 3.77 M/uL (3.86-4.86)
[2019-03-20 22:19] LABS: Protime INR 0.99
[2019-03-20 23:17] VITALS: TEMP 97.5; O2SAT 98
[2019-03-20 23:18] VITALS: BP 132/80
--- NOTE | 2019-03-21 09:22 | EKG ---
Test Date: 2019-03-20 Test Time: 20:13:46 Handbag Designer: JESUS ALBERTO MEASUREMENT RESULTS: Intervals: Rate: 71 ND: 192 QRSD: 88 QT: 422 QTc: 458 [place]: P: 72 ND: 192 QRS: 54 T: 72 INTERPRETIVE STATEMENTS: Normal sinus rhythm Normal ECG Compared to ECG 02/17/2019 09:03:17 No significant changes Electronically Signed On 03-21-19 09:20:55 CDT by Miquel Lemons
== END 2019-03-20 23:01 | disposition home or self-care (01) ==
LOC: ER 20:05
DX: R41.82 Altered mental status, unspecified (principal); R42 Dizziness and giddiness; Z79.82 Long term (current) use of aspirin; I48.91 Unspecified atrial fibrillation; I10 Essential (primary) hypertension; F10.129 Alcohol abuse with intoxication, unspecified
CPT/HCPCS: 36415; 70450; 80048; 80076; 80307; 80320; 80329; 81003; 85025; 85610; 85730; 93005; 96365; 99284; J3411